=== PATIENT | male | born 1955 | race Caucasian/White ===

== ENCOUNTER 2017-10-20 08:36 | Outpatient (CLI) | payer BC, SELFPAY ==
[2017-10-20 12:18] LABS: Cholesterol 120 mg/dL (50-200); HDL Cholesterol 42 mg/dL (40-60); LDL CHOLESTEROL 65 mg/dL (<100); Triglyceride 148 mg/dL (30-150)
[2017-10-23 09:53] LABS: PSA, Screening 1.1 ng/ml (0-4.5)
== END 2017-10-20 08:56 ==
LOC: LBO 08:37 → LOS 10:40
PROVIDERS: PCP Emergency Medicine; Visit Provider Emergency Medicine
DX: E78.5 Hyperlipidemia, unspecified (principal); Z12.5 Encounter for screening for malignant neoplasm of prostate; N40.0 Benign prostatic hyperplasia without lower urinary tract symptoms
CPT/HCPCS: 36415; 80061; 83721; 84153

== ENCOUNTER 2018-10-19 03:49 | Outpatient (CLI) | payer BC, SELFPAY ==
[2018-10-19 11:16] LABS: Calculated LDL 68 mg/dL; Cholesterol 148 mg/dL (50-200); HDL Cholesterol 42 mg/dL (40-60); Triglyceride 193 mg/dL (30-150)
[2018-10-19 11:27] LABS: Hemoglobin A1C 6.3 % (4.5-6.2)
== END 2018-10-19 04:09 ==
PROVIDERS: PCP Emergency Medicine; Visit Provider Emergency Medicine
DX: E11.9 Type 2 diabetes mellitus without complications (principal); Z00.00 Encounter for general adult medical examination without abnormal findings; Z13.220 Encounter for screening for lipoid disorders
CPT/HCPCS: 36415; 80061; 83036

== ENCOUNTER 2020-01-13 03:38 | Outpatient (CLI) | payer MEDICARE, SELFPAY ==
[2020-01-13 10:21] LABS: Hemoglobin A1C 6.1 % (<5.7)
== END 2020-01-13 03:58 ==
PROVIDERS: Nurse Practitioner Family; PCP Emergency Medicine; Visit Provider Emergency Medicine
DX: E11.9 Type 2 diabetes mellitus without complications (principal)
CPT/HCPCS: 36415; 83036

== ENCOUNTER 2020-03-24 02:40 | Outpatient (CLI) | payer MEDICARE, SELFPAY ==
[2020-03-24 16:02] LABS: Hemoglobin A1C 5.9 % (<5.7)
[2020-03-24 16:04] LABS: Anion Gap 11.3 mmol/L (3-11); BUN 16 mg/dL (7-18); CO2 24.7 mmol/L (21.0-32.0); CREATININE 1.1 mg/dL (0.70-1.30); Calcium 8.9 mg/dL (8.5-10.1); Calculated LDL 40 mg/dL (<100); Chloride 104 mmol/L (98-107); Cholesterol 143 mg/dL (<200); Glucose 110 mg/dL (74-106); HDL Cholesterol 45 mg/dL (40-60); Potassium 4.2 mmol/L (3.5-5.1); Sodium 140 mmol/L (136-145); Triglyceride 292 mg/dL (<150)
== END 2020-03-24 02:41 | disposition home or self-care (01) ==
LOC: LBO 02:41
PROVIDERS: PCP Emergency Medicine; Visit Provider Emergency Medicine
DX: E78.5 Hyperlipidemia, unspecified (principal); I10 Essential (primary) hypertension; I21.3 ST elevation (STEMI) myocardial infarction of unspecified site; E11.9 Type 2 diabetes mellitus without complications
CPT/HCPCS: 36415; 80048; 80061; 83036

== ENCOUNTER 2020-10-29 13:08 | Outpatient (REF) | payer MEDICARE, SELFPAY ==
[2020-10-29 19:16] LABS: Hemoglobin A1C 5.9 % (<5.7)
[2020-10-29 19:21] LABS: Anion Gap 8.8 mmol/L (3-11); BUN 16 mg/dL (7-18); CO2 26.2 mmol/L (21.0-32.0); CREATININE 1.1 mg/dL (0.70-1.30); Calcium 9.1 mg/dL (8.5-10.1); Chloride 106 mmol/L (98-107); Glucose 104 mg/dL (74-106); Potassium 4.9 mmol/L (3.5-5.1); Sodium 141 mmol/L (136-145)
== END 2020-10-29 13:09 | disposition home or self-care (01) ==
LOC: LBN 13:08
PROVIDERS: PCP Emergency Medicine; Visit Provider Emergency Medicine
DX: E11.9 Type 2 diabetes mellitus without complications (principal); I10 Essential (primary) hypertension
CPT/HCPCS: 80048; 83036

== ENCOUNTER 2021-05-27 02:27 | Outpatient (CLI) | payer MEDICARE, SELFPAY ==
[2021-05-27 11:14] LABS: Hemoglobin A1C 5.9 % (<5.7)
[2021-05-27 12:15] LABS: Calculated LDL 61 mg/dL (<100); Cholesterol 129 mg/dL (<200); HDL Cholesterol 44 mg/dL (40-60); Triglyceride 123 mg/dL (<150)
== END 2021-05-27 02:28 | disposition home or self-care (01) ==
LOC: LBO 02:27
PROVIDERS: Emergency Medicine; PCP Family Medicine; Visit Provider Family Medicine
DX: I10 Essential (primary) hypertension (principal); E78.5 Hyperlipidemia, unspecified; E11.9 Type 2 diabetes mellitus without complications
CPT/HCPCS: 36415; 80061; 83036

== ENCOUNTER 2021-11-02 13:29 | Outpatient (CLI) | payer MEDICARE, SELFPAY ==
[2021-11-02 10:10] LABS: Estimated GFR 82.49 (mL/min/1.73m2); Potassium 4.2 mmol/L (3.5-5.1)
--- OUTSIDE RECORDS SUMMARY | 2021-11-02 13:34 | XMS_ITS | Encounter Summary ---
:1955 Author Organization [facility] Address [address] [place] [address] Care Team Providers Name Role Phone JairoLouie davies Primary Care Provider Reason for Visit Reason Onset Date Comments Appointment Related 06/18/2014 Encounter Details Date Type Department Care Team Description 06/18/[address] [facility] DANAY - Ender Sousa MD Appointment Related [employer] [address] [place] [address] [place], [place] [phone] (Wo rk) Social History Tobacco Use Types Packs/Day Years Used Date Never Smoker Alcohol Use Standard Drinks/Week Comments Yes 0 (1 standard drink = 0.6 oz pure alcoho l) 1 Alcohol Habits Answer Date Recorded How often do you have a drink containing alcohol? Not asked How many drinks containing alcohol do you have on a typical Not asked day when you are drinking? How often do you have six or more drinks on one occasion? No t asked Comment: 1 06/11/2014 Sex Assigned at Date Recorded Not on file documented as of this encounter Miscellaneous Notes Telephone Encounter - Jenna Esquivel RN - 06/18/[address] Sousa recommends having CT scan and following up here after. Pt will have CT a t9 am Monday. elephone Encounter - Saniya Fraire - 06/18/2014 0952 EDT Patient called and is questioning whether having the ct scan is really necessary. Dr. Sousa told him during the visit it didn't look like anything to serious so he not so sure he wants to pursue this. Please advise. [phone] documented in this encounter Plan of Treatment Not on filedocumented as of this encounter Visit Diagnoses Not on filedocumented in this encounter Care Teams Machine Adjuster Relationship Specialty Start Date End Date Louie Gill, PCP - General 06/13/[address] [place], [place] [address] [address] documented as of this encounter
--- OUTSIDE RECORDS SUMMARY | 2021-11-02 13:34 | XMS_ITS | Encounter Summary ---
:1955 Author Organization [facility] Address [address] [place] [address] Care Team Providers Name Role Phone Jairo, Louie Aguila Primary Care Provider Encounter Details Date Type Department Care Team Description 08/21/2019 Lab Requisition [facility] Outr Resulting Lab, Pathology & Laboratory Provider [facility] [address] [place], [place] [id number] Social History Tobacco Use Types Packs/Day Years [...] on file documented as of this encounter Plan of Treatment Not on filedocumented as of this encounter Procedures Procedure Name Priority Date/Time Associated Comments Diagnosis PSA TOTAL, Routine 08/20/2019 15:40 Results for this DIAGNOSTIC EDT procedure are i n the results section. documented in this encounter Results PSA TOTAL, DIAGNOSTIC (08/20/2019 15:40 EDT) Pathologist Sig nature PSA 1.2 0.0 - 4.5 ng/mL [facility] Specimen Blood - Venous blood (substance) Narrative [facility] - 08/22/2019 8:49 EDT NOTE: Serum PSA concentration should not be in terpreted as absolute evidence for the presence or absence of malignant disease. Assayed on Siemens ADVIA Centaur XPT usi ng chemiluminescent technology.??Values obtained by using different assay methods cannot be used interchangeably. Performing Organization Address City/State/ZIP Code Phon e Number [facility] [address] [place] [address] SERVICES documented in this encounter Visit Diagnoses Not on filedocumented in this encounter Care Teams Compliance Aide Relationship Specialty Start Date End Date Louie Gill, PCP - General 06/13/11 [address] [place] [address] documented as of this encounter
--- OUTSIDE RECORDS SUMMARY | 2021-11-02 13:34 | XMS_ITS | Encounter Summary ---
:1955 Author Organization [facility] Address [address] [place] [address] Care Team Providers Name Role Phone JairoLouie anderson DO Primary Care Provider Reason for Visit Reason Comments Diagnostic Imaging Report Encounter Details Date Type Department Care Team Description 07/08/2014 Office Visit [facility] ENT Unknown, Provider, Maxillary sinus mass (Primary Dx); - Terry Tolliver MD [address] [place] [address] [address] [place] [address] Oral fistula [address] [place] [address] Social History Tobacco Use Types Packs/Day Years [...] on file documented as of this encounter Progress Notes Terry Sousa MD - 07/08/[address] scan of the sinuses. SUBJECTIVE: The patient is doing well, no new problems. OBJECTIVE: CT scans were read and reviewed with the patient, and this shows an oral maxillary fistula, which is encased by mucus lining thickening and partial rim calcification. There is also mild mucoperiosteal thickening of the left maxillary and right sphenoid sinus. IMPRESSION: Dental abscess that caused the oral antral fistula and calcification in the right maxillary sinus, followed by dental extraction, now leaves a pocket between the oral cavity and the right maxillary sinus. This is a potential for infection. RECOMMENDATION: Consider repair of the oral antral fistula, either from the top down or bottom up orcombination of the two; however, since the patient is not having any symptoms, he may consider waiting before proceeding with surgical repair. cc: Dillon Gill. cc: Dr Lin in oral surgery. documented in this encounter Plan of Treatment Not on filedocumented as of this encounter Visit Diagnoses Diagnosis Maxillary sinus mass - Primary Swelling, mass, or lump in head and neck Oral fistula Cellulitis and abscess of oral soft tiss ues documented in this encounter Care Teams Division Order Technician Relationship Specialty Start Date End Date Louie Gill DO PCP - General 06/13/11 [address] [place] [address] documented as of this encounter
--- OUTSIDE RECORDS SUMMARY | 2021-11-02 13:34 | XMS_ITS | Encounter Summary ---
:1955 Author Organization [facility] Address [address] [place] [address] Care Team Providers Name Role Phone Louie Gill DO Primary Care Provider Encounter Details Date Type Department Care Team Description 12/26/2017 Results Only [facility]- Giorgio Hare MD [phone] [place] [phone] Social History Tobacco Use Types Packs/Day Years [...] encounter Procedures Procedure Name Priority Date/Time Associated Diagnosis Comme nts SURGICAL PATHOLOGY Routine 12/26/2017 16:47 Resul ts for this EST procedure are i n the results section. documented in this encounter Results SURGICAL PATHOLOGY (12/26/2017 16:47 EST) Pathology Report: SURGICAL PATHOLOGY REPORT [facility] Reports generated via electronic interface contain tal ginal data; LABORATORY however they are lacking the format of the original re port. SERVICES Caution should be taken when reading/interpreting unfo rmatted reports. Name: ? JESSIKA CHRISTIE ? Accession #: ? [id number] ? : ? 1955 (Age: [age]) ??M ? Collect Date: ? 12/26/2017 ? Location: ? [facility] ? Receive Date: ? 12/27/19 18 ? Provider: GIORGIO CAO MD Copy to: ? Final Pathologic Diagnosis: A. ??COLON, SIGMOID POLYP, POLYPECTOMY: - Fragment of unremarkable colonic mucosa. - No polypoid lesion noted (multiple levels examined). B. ??RECTUM, POLYP, POLYPECTOMY: - Hyperplastic polyp. ?? Document reviewed and electronically signed by: GOSIA MARISCAL MD Report ??Date: 12/27/2017 15:45 By the signature above, the attending physician certif ies that he/she has personally conducted a gross and/or microscopic examin ation of the described specimens and rendered or confirmed the above diagnosi s. Specimen(s) Received: A. ??Sigmoid polyp B. ??Rectal polyp Clinical History: Clinical diagnosis codes: Z12.11, Z86.010, Z80.0 Gross Description: A. ?Received in formalin labelled with proper p atient identification (initials B, R) and sigmoid polyp is a single pink-marshall tissue fragment (0.3 x 0.2 x 0.2 cm). Submitted intact in A1. B. ?Received in formalin labelled with proper p atient identification (initials B, R) and rectal polyp is a single pink-marshall tissue fragment (0.2 x 0.2 x 0.2 cm). Submitted intact in B1. RIYA Us (ASCP) 12/26/2017 5:06 PM End of Report Specimen Performing Organization Address City/State/ZIP Code Phon e Number [facility] [address] [place] [address] SERVICES documented in this encounter Visit Diagnoses Not on filedocumented in this encounter Care Teams Tunneller Relationship Specialty Start Date End Date Louie Gill DO PCP - General 06/13/11 [address] [place] [address] documented as of this encounter
--- OUTSIDE RECORDS SUMMARY | 2021-11-02 13:34 | XMS_ITS | Encounter Summary ---
:1955 Author Organization [facility] Address [address] [place] [address] Care Team Providers Name Role Phone Jairo, Louie Sheehan DO Primary Care Provider Reason for Referral Cardiology (Routine) - Closed Specialty Diagnoses / Procedures Referred By Contact Refer red To Contact Diagnoses Pre-op testing Terry Sousa MD Procedures EKG 12-LEAD [address] [facility] [address] [place] [address] Referral ID Status Reason Start Date Expiration Date Visits Requ ested Visits Authorized [id number] Closed 08/19/2015 1 1 Reason for Visit Reason Onset Date Comments Pre-visit Orders 08/11/2015 PRE OP ORDERS CHEST X RAY AND ekg Encounter Details Date Type Department Care Team Description 08/11/2015 Orders Only [facility] ENT Terry Sousa, Pre-op testing (Primary Dx); - Arjun LEONE Maxillary sinus mass; [address] [facility] [place] [address] [address] [place] [address] Social History Tobacco Use Types Packs/Day Years [...] as of this encounter Plan of Treatment Scheduled Orders Name Type Priority Associated Diagnoses Order S chedule EKG 12-LEAD ECG Routine Pre-op testing Ordered: 07/2015 documented as of this encounter Visit Diagnoses Diagnosis Pre-op testing - Primary Preoperative examination, unspecified Maxillary sinus mass Swelling, mass, or lump in head and neck Oral fistula Cellulitis and abscess of oral soft tiss ues documented in this encounter Care Teams Legal Activity Adjudicator Relationship Specialty Start Date End Date Louie Gill, PCP - General 06/13/11 [address] [place] [address] documented as of this encounter
--- OUTSIDE RECORDS SUMMARY | 2021-11-02 13:34 | XMS_ITS | Encounter Summary ---
:[address] [facility] Address [address] [place] [address] Care Team Providers Name Role Phone Louie Gill Aguila DO Primary Care Provider Encounter Details Date Type Department Care Team Description 08/05/2011 Results Only [facility] Katlin Gill, DO Laboratory Services - [address] [place] [address] 0 [facility] [place] [address] [phone] Social History Tobacco Use Types Packs/Day Years Used Date Never Assessed Sex Assigned at Date Recorded Not on file documented as of this encounter Plan of Treatment Not on filedocumented as of this encounter Procedures Procedure Name Priority Date/Time Associated Diagnosis Comme [facility] SURGICAL PATHOLOGY Routine 08/05/2011 0:00 EDT Re sults for this procedure are i n the results section. documented in this encounter Results SURGICAL PATHOLOGY (08/05/2011 0:00 EDT) Pathology Report: SURGICAL PATHOLOGY REPORT [facility] Reports generated via electronic interface contain tal ginal data; LAB however they are lacking the format of the original re port. Caution should be taken when reading/interpreting unfo rmatted reports. Name: ? JESSIKA CHRISTIE ? Accession #: ? [id number] ? : ? 1955 (Age: 56) ??M ? Collect Date: ? 08/05/2011 ? Location: ? [facility] ? Receive Date: ? 012 ? Provider: LOUIE GILL DO Copy to: ? Final Pathologic Diagnosis: ? Skin of knee, right, excisional biopsy: 1. ?Dermatofibroma. ? - Dermatofibroma extends to deep margin. ?? Microscopic Description: ? There is irregular epidermal hyperplasia with basal hyperpigmentation. Within the dermis, there is a spindle cell proliferati on accompanied by histiocytes. ??The spindle c ells have plump nuclei that vary to a mild degree in size and shape. ??The prolif eration is associated with thick bundles of collagen (collagen trapping) and areas of sclerosis. ??(Dr. Leatha iraheta)/mignon Document reviewed and electronically signed by: NOREEN RUIZ MD Report ??Date: 08/08/2011 15:31 By the signature above, the attending physician certif ies that he/she has personally conducted a gross and/or microscopic examin ation of the described specimens and rendered or confirmed the above diagnosi s. Specimen(s) Received: ? Excisional biopsy R knee Clinical History: ? Atypical nodule Gross Description: ? Received in formalin labelled Jessika Christie and Rt knee is an unoriented elliptical excisi on of marshall-white, focally hairbearing skin measuring 1.3 x 0.9 cm and is excised to a depth of 0.2 cm. ??There is a central 0.4 x 0.4 by less than 0.1 cm irregula r carmona-white, smooth, firm papule. ??The margins are inked. ??The specimen is serially sectio landon and entirely submitted as (A1) and (A2) central sections and (A3) tips, reverse en face. ??(Holly Buckner)/m End of Report Specimen Performing Organization Address City/State/ZIP Code Phon e Number [facility] [address] [place] [address] SERVICES [facility] [address] [place] [address] documented in this encounter Visit Diagnoses Not on filedocumented in this encounter Care Teams Confidential Secretary Relationship Specialty Start Date End Date Louie Gill, PCP - General 06/13/11 [address] [place] [address] documented as of this encounter
--- OUTSIDE RECORDS SUMMARY | 2021-11-02 13:34 | XMS_ITS | Encounter Summary ---
:1955 Author Organization [facility] Address [address] [place] [address] Care Team Providers Name Role Phone Louie Gill DO Primary Care Provider Encounter Details Date Type Department Care Team Description 12/26/2017 Hospital Encounter [facility]- Maria E Unknown, Provider, [facility] [address] [facility] [phone] [place] [address] (Work) [phone] Social History Tobacco Use Types Packs/Day Years [...] on file documented as of this encounter Medications at Time of Discharge Medication Sig Dispensed Refills Start Date End Date aspirin 325 mg tablet Take 325 mg by 0 mouth daily ERGOCALCIFEROL, VITAMIN D2, Take by mouth 0 (VITAMIN D ORAL) hydrochlorothiazide Take 25 mg by 0 (HYDRODIURIL) 25 mg tablet mouth daily levOFLOXacin (LEVAQUIN) 500 mg Take 1 Tab by 14 Tab 1 tablet mouth daily. lisinopril (PRINIVIL, ZESTRIL) Take 10 mg by 0 10 mg tablet mouth daily Multivitamins with Minerals Take 1 Tab by 0 tablet mouth daily pravastatin (PRAVACHOL) 20 mg Take 40 mg by 0 tablet mouth daily documented as of this encounter Discharge Disposition Disposition Code Departure Means Destination Home or Self Senior Living documented in this encounter Plan of Treatment Not on filedocumented as of this encounter Visit Diagnoses Not on filedocumented in this encounter Care Teams Business Office Director Relationship Specialty Start Date End Date Louie Gill DO PCP - General 06/13/[address] [place] [address] documented as of this encounter
--- OUTSIDE RECORDS SUMMARY | 2021-11-02 13:34 | XMS_ITS | Clinical Summary ---
:1955 Author Organization [facility] [place] [address] Care Team Providers Name Role Phone JairoLouie Primary Care Provider Allergies Active Allergy Reactions Severity Noted Date Comments Latex Rash 01/26/2012 Latex, Natural Rubber 12/15/2015 Penicillins Shortness Of Breath, High 09/08/2015 Per pat magnolia, can take Rash z-pack. Medications Medication Sig Dispensed Refills Start Date End Date Status multivitamin (THERAGRAN) Take 1 tablet by 0 Active tablet mouth daily. aspirin 81 mg Tablet, Take 81 mg by 0 Active Delayed Release (E.C.) mouth daily. carvedilol (COREG) 6.25 Take 6.25 mg by 0 Active mg Tablet mouth 2 times daily (with meals). CALCIUM CARBONATE/VITAMIN Take 1 tablet by 0 Active D3 (VITAMIN D-3 ORAL) mouth daily. BETA-CAROTENE,A,-VITS Take 1 capsule 0 Active C,E/MINS (EYE HEALTH by mouth daily. ORAL) [employer]Promise lisinopril Take 10 mg by 0 04/21/2015 Acti ve (PRINIVIL;ZESTRIL) 10 mg mouth daily. Tablet atorvastatin (LIPITOR) 80 Take 1 tablet by 90 tablet 3 020 Active mg Tablet mouth daily. nitroGLYcerin (NITROSTAT) Place 1 tablet 10 tablet 0 0 Active 0.4 mg Tablet, Sublingual under the tongue every 5 minutes as needed for Chest pain. hydroCHLOROthiazide Daily 0 12/07/2012 Active (Hydrodiuril) 25 mg Tablet metFORMIN (Glucophage) Take 500 mg by 0 03/06/2020 Active 500 mg Tablet mouth 2 times daily. 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 Alcohol Use Standard Drinks/Week Comments Yes 0 (1 standard drink = 0.6 oz pure alcoho l) occasionally Alcohol Habits Answer Date Recorded How often do you have a drink containing alcohol? Not asked How many drinks containing alcohol do you have on a Not aske d typical day when you are drinking? How often do you have six or more drinks on one occasion? No t asked Comment: occasionally 09/08/2015 Sex Assigned at Date Recorded Not on file Last Filed Vital Signs Vital Sign Reading Time Taken Comments Blood Pressure 136/71 03/24/2020 8:48 AM EST Pulse 63 03/24/2020 8:48 AM EST Temperature 36.3 ??C (97.3 ??F) 01/26/2012 3:19 PM EST Respiratory Rate 16 01/26/2012 5:06 PM EST Oxygen Saturation 98% 03/24/2020 8:48 AM EST Inhaled Oxygen Concentration - - Weight 116.6 kg (257 lb) 03/24/2020 8:48 AM EST Height 182.9 cm (6') 03/24/2020 8:48 AM EST Body Mass Index 34.86 03/24/2020 8:48 AM EST Plan of Treatment Upcoming Encounters Date Type Specialty Care Team Description 11/24/2021 Office Visit Cardiology Tyesha Guzman MD [facility] [place] [address] Sam Lord MD [facility] [address] Health Maintenance Due Date Last Done Comments Covid-19 Vaccine (#1) 05/14/1959 Hepatitis C Screening 1972 Tdap adult 1973 Tetanus vaccine 1973 Zoster vaccine (1 of 2) 2004 Advance Directive 2009 AAA Screen 05/14/2019 Pneumoccocal Vaccine: 65+ (1 - PCV) 05/14/2019 Diabetes Screening (HgbA1C or Glucose) 09/28/2019 7 Influenza (Flu) vaccine (1 of 1 - 10/14/2021 Influenza standard series) Colonoscopy 01/25/2022 01/26/2012, 01/26/2012 Insurance Payer Benefit Plan / Subscriber ID Effective Phone Address T ype Group Dates AETNA MEDICARE AETNA MEDICARE [id number] 2019-Prese [address] [address] [place] [address] MEDICARE MEDICARE PART A [id number] 2020-Prese [phone] [place] [address] Advance Directives Documents on File Type Date Recorded Patient Traffic Routing Engineer Explanati on Personal Traffic Routing Engineer 02/27/2018 3:15 PM Lucero Keith Care Teams Director Of Vital Statistics Relationship Specialty Start Date End Date Louie Gill DO PCP - General 01/16/[address] [place], [place] [address]
--- OUTSIDE RECORDS SUMMARY | 2021-11-02 13:34 | XMS_ITS | Encounter Summary ---
:1955 Author Organization [facility] [place] [address] Care Team Providers Name Role Phone Louie Gill DO Primary Care Provider Encounter Details Date Type Department Care Team Description 03/17/2020 Orders Only Cardiology at [facility] Natty Camilo Hypertension, [facility] MAIKEL Beyer essential , [place] [address] Social History Tobacco Use Types Packs/Day Years [...] as of this encounter Plan of Treatment Upcoming Encounters Date Type Specialty Care Team Description 11/24/2021 Office Visit Cardiology Tyesha Guzman MD [facility] [place] [address] Sam Lord MD [facility] [address] documented as of this encounter Results EKG 12 Lead (03/24/2020 9:04 AM EST) Component Value Ref Range Test Analysis Performed Pathologis t Method Time At Signature Ventricular rate 65 BPM MUSE SYSTEM Atrial Rate 65 BPM MUSE SYSTEM P-R Interval 188 ms MUSE SYSTEM QRS Duration 96 ms MUSE SYSTEM Q-T Interval 430 ms MUSE SYSTEM QTC Calculated 447 ms MUSE SYSTEM (Bezet) Calculated P [place] 53 degrees MUSE SYSTEM Calculated R [place] 21 degrees MUSE SYSTEM Calculated T [place] 20 degrees MUSE SYSTEM INTERPRETATION Normal sinus rhythm MUSE SYSTEM possible ??Inferior infarct (cited on or before 18-SEP-2015) Abnormal ECG When compared with ECG of 19-FEB-2019 08:59, No significant change was found I personally reviewed the tracing and agree with the vazquez interpretation Confirmed by fellow Navi Munoz ([id number]) on 03/24/2020 2 :54:37 PM Confirmed by Maggie Morales ([id number]) on 03/24/2020 3:10:46 PM Specimen Anatomical Collection Method Collection Time Receive d Time (Source) Location / / Volume Laterality 03/24/2020 9:04 AM 3:10 EST PM EST Wilbur Serna Robert MD ECG ORDERABLES Performing Organization Address City/State/ZIP Code Phon e Number MUSE SYSTEM documented in this encounter Visit Diagnoses Diagnosis Hypertension, essential, benign Essential hypertension, benign documented in this encounter Care Teams Sr Vice President Relationship Specialty Start Date End Date Louie Gill DO PCP - General 01/16/[address] [place] [address] documented as of this encounter
--- OUTSIDE RECORDS SUMMARY | 2021-11-02 13:34 | XMS_ITS | Encounter Summary ---
:1955 Author Organization [facility] Address [address] [place] [address] Care Team Providers Name Role Phone Jairo, Louie Sheehan DO Primary Care Provider Reason for Visit Reason Onset Date Comments Appointment Related 08/12/2015 Encounter Details Date Type Department Care Team Description 08/12/2015 Telephone [facility] DANAY - Ender Sousa MD Appointment Related [place] [address] [place] [address] [place] [phone] (Wo rk) Social History Tobacco Use [...] this encounter Miscellaneous Notes Telephone Encounter - Flora Urban RN - 08/18/2015 1412 EDT Pt called back to discuss below message from last week. Chu states that he originally saw an oralsurgeon who recommended he see Dr. Sousa due to poor resolution of a sinus infection. He states that he waited a long time to be seen. He notes that he felt his office visit was very brief/rushed with Dr. Sousa and he felt that his pain concerns could have been better addressed by Dr. Sousa and referred to someone else as appropriate. He said that it turns out all of his pain was due to angina and a heart attack. He was seen in [place] and determined that this was the cause of the pain. He is now on blood thinners and being treated by a energy specialist at [facility] he can't have surgery anyway for 90 days due to the blood thinners and does plan to see an ENT at [facility] as well. Chu does welcome a call from Dr. Sousa should he have any thoughts on treatment for his chronic sinus congestion, he states he is still really full of junk and sounds very congested.. However he plans to transfer care to [facility]. He states he is sure Dr. Sousa is a good MD however he felt he was super busy the day he was seen and therefore was unable to give him the time needed. Pt knows that I will forward his message on to Dr. Sousa when he returns tomorrow. elephone Encounter - Flora Urban RN - 08/13/2015 0903 EDT Left message to call back. elephone Encounter - Cortney Mckay - 08/12/2015 1044 EDT Pt returned my call to schedule a CT scan. Pt informed me that he is unable to proceed with the current plan of CT, preop and surgery due to having suffered a mild heart attack while in [place] on vacation last weekend. Pt also states that he will not be returning for treatment from Dr Sousa as he feels hissore throat and coughing were not addressed in a timely matter and the coughing was the cause his heart attack. This pt's appt and imaging have been cancelled. documented in this encounter Plan of Treatment Not on filedocumented as of this encounter Visit Diagnoses Not on filedocumented in this encounter Care Teams Steam Service Inspector Relationship Specialty Start Date End Date Louie Gill, PCP - General 06/13/11 [address] [facility] [place] [address] documented as of this encounter
--- OUTSIDE RECORDS SUMMARY | 2021-11-02 13:34 | XMS_ITS | Encounter Summary ---
:[address] [facility] Address [address] [place] [address] Care Team Providers Name Role Phone Louie Gill Primary Care Provider Reason for Referral Laboratory Services (Routine) - Closed Specialty Diagnoses / Procedures Referred By Contact Refer red To Contact Diagnoses Chronic sinusitis, unspecified Terry Sousa MD Procedures HEMAGRAM AND DIFFERENTIAL [address] [facility] [address] [place] [address] Referral ID Status Reason Start Date Expiration Date Visits Requ ested Visits Authorized [id number] Closed 08/19/2015 1 1 Reason for Visit Reason Onset Date Comments Labs Only 08/11/2015 Encounter Details Date Type Department Care Team Description 08/11/2015 Orders Only [facility] ENT Terry Sousa, Chronic sinusitis, - Arjun LEONE unspecified (Primary [address] [place] [address] [address] [place] [address] Social History Tobacco Use Types [...] Type Priority Associated Diagnoses Order S chedule HEMAGRAM AND DIFFERENTIAL Lab Routine Chronic sinusit is, Ordered: 08/19/2015 unspecified documented as of this encounter Visit Diagnoses Diagnosis Chronic sinusitis, unspecified - Primary documented in this encounter Care Teams Boots And Shoes Supervisor Relationship Specialty Start Date End Date Louie Gill, PCP - General 06/13/11 [facility] [place] [address] documented as of this encounter
--- OUTSIDE RECORDS SUMMARY | 2021-11-02 13:34 | XMS_ITS | Encounter Summary ---
:1955 Author Organization [facility] Address [address] [place] [address] Care Team Providers Name Role Phone JairoLouie anderson DO Primary Care Provider Reason for Referral Radiology Services (Routine) - Closed Specialty Diagnoses / Procedures Referred By Contact Refer red To Contact Diagnoses Maxillary sinus mass Oral fistula Terry Sousa MD Procedures CT SINUSES [address] [phone] Referral ID Status Reason Start Date Expiration Date Visits Requ ested Visits Authorized [id number] Closed 08/06/2015 1 1 Reason for Visit Reason Comments Follow-up chronic sinus drainage Encounter Details Date Type Department Care Team Description 08/06/2015 Office Visit [facility] ENT Unknown, Provider, Maxillary sinus mass (Primary Dx); - Terry Tolliver MD [address] [phone] Oral fistula [address] [place] [address] Social History Tobacco Use Types Packs/Day [...] on file documented as of this encounter Ordered Prescriptions Prescription Sig Dispensed Refills Start Date End Date levOFLOXacin (LEVAQUIN) 500 Take 1 Tab by mouth 14 Tab 1 08/06/2015 mg tablet daily. documented in this encounter Progress Notes Terry Sousa MD - 08/06/2015 1605 EDT Followup right oroantral fistula and chronic sinusitis. SUBJECTIVE: A 60-year-old male who underwent extraction of the right first molar in April 2014 complicated by an oroantral fistula. This was confirmed with a CT scan and on February 2015, he underwent amultilayer closure of the fistula with good healing; however, he returned with a recurrent sinus disease and drainage and a probe showed a persistent fistula. His past medical history significant for hypertension and hypercholesterolemia. Family history significant for heart disease and cancer. SOCIAL HISTORY: The patient is a nonsmoker. He has drug allergies to LATEX and PENICILLIN. Current medications include aspirin, vitamin D, hydrochlorothiazide, lisinopril, multivitamins and Pravachol. PHYSICAL EXAM: General: Well-developed, well-nourished, alert, oriented, cooperative adult male in no acute distress. Normal voice. The face is normal without lesions. Facial strength is symmetric. Eyeexam is normal. Ears: External ears are normal, canals are clear, tympanic membranes are normal. Nose: Nasal dorsum is midline, the airway is patent. Oral cavity and posterior pharynx is clear. Neck: No pathologic lymphadenopathy. Trachea is midline. Chest is clear to auscultation. Heart: Regular rateand rhythm. PROCEDURE: Fiberoptic nasal endoscopy was performed and this reveals edema in the right middle meatus area at the maxillary sinus ostium. IMPRESSION: Chronic sinusitis, persistent oroantral fistula. PLAN: Will treat with a prolonged course of antibiotic therapy, repeat CT scan of the sinuses and schedule patient for functional endoscopic sinus surgery with opening of the right maxillary sinus ostia. Hopefully, this will clear the sinus disease and allow the fistula to heal spontaneously. If not, consider oroantral fistula repair from above and below. The patient understands and agrees with the current plan. cc: Dr Jairo Lin DDS documented in this encounter Plan of Treatment Scheduled Orders Name Type Priority Associated Diagnoses Order S chedule CT SINUSES Imaging Routine Maxillary sinus mass Ordered: 08/06/2015 Oral fistula documented as of this encounter Visit Diagnoses Diagnosis Maxillary sinus mass - Primary Swelling, mass, or lump in head and neck Oral fistula Cellulitis and abscess of oral soft tiss ues documented in this encounter Care Teams Fern Picker Relationship Specialty Start Date End Date Louie Gill, PCP - General 06/13/11 [facility] [place] [address] documented as of this encounter
--- OUTSIDE RECORDS SUMMARY | 2021-11-02 13:34 | XMS_ITS | Encounter Summary ---
:1955 Author Organization [facility] Address [address] [place] [address] Care Team Providers Name Role Phone Louie Gill Primary Care Provider Encounter Details Date Type Department Care Team Description 06/10/2011 Results Only [facility] Giles Saavedra DPM Laboratory Services - [address] [address] [phone] Social History Tobacco Use Types Packs/Day Years Used Date Never Assessed Sex Assigned at Date Recorded Not on file documented as of this encounter Plan of Treatment Not on filedocumented as of this encounter Procedures Procedure Name Priority Date/Time Associated Diagnosis Comme [facility] SURGICAL PATHOLOGY Routine 06/10/2011 0:00 EDT Re sults for this procedure are i n the results section. documented in this encounter Results SURGICAL PATHOLOGY (06/10/2011 0:00 EDT) Pathology Report: SURGICAL PATHOLOGY REPORT KAELA SHANNON Reports generated via electronic interface contain tal ginal data; LAB however they are lacking the format of the original re port. Caution should be taken when reading/interpreting unfo rmatted reports. Name: ? JESSIKA CHRISTIE ? Accession #: ? [id number] ? : ? 1955 (Age: 56) ??M ? Collect Date: ? 06/10/2011 ? Location: ? [facility] ? Receive Date: ? 012 ? Provider: ELISHA SAAVEDRA DPM Copy to: LOUIE Aguila GILL DO ? Final Pathologic Diagnosis: ? Soft tissue of foot, left plantar, excision: - Plantar fibromatosis. ?? Document reviewed and electronically signed by: HERNANDEZ KEMP MD Report ??Date: 06/14/2011 14:26 By the signature above, the attending physician certif ies that he/she has personally conducted a gross and/or microscopic examin ation of the described specimens and rendered or confirmed the above diagnosi s. Specimen(s) Received: ? Plantar mass left foot Clinical History: ? Plantar mass left foot Gross Description: ? Received in formalin labelled Luisa Christie onkb and plantar mass left foot are two firm, irregula r, and unoriented pieces of marshall-white tissue with a small amount of attached yel low adipose tissue which measure 1.4 x 1.1 x 0.7 cm and 3.0 x 1.5 x 1.1 cm. ??Th e larger piece is inked black and the smaller piece is inked blue. ??The cut surfaces are marshall-white to yellow-white, fibrous, and faintly nodular with no areas of hemorrhage. ??R epresentative sections of the larger piece are submitted as (A1) and (A2) and the smaller piece is entirely submitted as (A3). ??(Natasha Carlson)/mignon End of Report Specimen Performing Organization Address City/State/ZIP Code Phon e Number [facility] [address] [place] [address] [facility] [address] [place] [address] documented in this encounter Visit Diagnoses Not on filedocumented in this encounter Care Teams Group Program Manager Relationship Specialty Start Date End Date Louie Gill, DO PCP - General 06/13/11 [address] [facility] [place] [address] documented as of this encounter
--- OUTSIDE RECORDS SUMMARY | 2021-11-02 13:34 | XMS_ITS | Encounter Summary ---
:1955 Author Organization [facility] Address [address] [place] [address] Care Team Providers Name Role Phone Louie Gill DO Primary Care Provider Encounter Details Date Type Department Care Team Description 07/01/2014 Hospital Encounter [facility] - [facility], [facility] [phone] [place] [address] (Work) [place] [address] Social History Tobacco Use Types Packs/Day Years [...] 0 (HYDRODIURIL) 25 mg tablet mouth daily lisinopril (PRINIVIL, ZESTRIL) Take 10 mg by 0 10 mg tablet mouth daily Multivitamins with Minerals Take 1 Tab by 0 tablet mouth daily pravastatin (PRAVACHOL) 20 mg Take 40 mg by 0 tablet mouth daily documented as of this encounter Discharge Disposition Disposition Code Departure Means Destination Home or Self [facility]sp documented in this encounter Plan of Treatment Not on filedocumented as of this encounter Visit Diagnoses Not on filedocumented in this encounter Care Teams Mold Forms Builder Relationship Specialty Start Date End Date Louie Gill, PCP - General 06/13/[address] [place] [address] [place] [address] documented as of this encounter
--- OUTSIDE RECORDS SUMMARY | 2021-11-02 13:34 | XMS_ITS | Encounter Summary ---
:1955 Author Organization [facility] Address [address] [place] [address] Care Team Providers Name Role Phone JairoLouie davies Primary Care Provider Reason for Referral Radiology Services (Routine) - Closed Specialty Diagnoses / Procedures Referred By Contact Refer red To Contact Diagnoses Maxillary sinus mass Terry Sousa MD Procedures CT SINUSES [address] [phone] Referral ID Status Reason Start Date Expiration Date Visits Requ ested Visits Authorized [id number] Closed 06/11/2014 1 1 Reason for Visit Reason Comments Sinus Problems had tooth pulled a month ago but on xray noticed something on rt side. congested on rt side symptom s mild but constant since tooth pulled. question growth on bone. Encounter Details Date Type Department Care Team Description 06/11/2014 Office Visit [facility] ENT Unknown, Provider, Maxillary sinus mass - [place] Terry Sousa MD 130 [facility] [address] [address] (Primary Dx) [address] [place] [address] Social History Tobacco Use Types [...] on file documented as of this encounter Last Filed Vital Signs Vital Sign Reading Time Taken Comments Blood Pressure 129/75 06/11/2014 1116 EDT Pulse 66 06/11/2014 1116 EDT Temperature - - Respiratory Rate - - Oxygen Saturation - - Inhaled Oxygen Concentration - - Weight 113.4 kg (250 lb) 06/11/2014 1116 EDT Height 182.9 cm (6') 06/11/2014 1116 EDT Body Mass Index 33.91 06/11/2014 1116 EDT documented in this encounter Progress Notes Terry Sousa MD - 06/11/2014 1136 EDT This is a consult from Louie Gill and Shahzad Lin for evaluation of a sinus mass. HISTORY OF PRESENT ILLNESS: This is a 59-year-old male with a history of a right 1st molar dental abscess. A Panorex done in 2010 showed a large opacified mass in the right maxillary sinus, located posteriorly. He underwent a dental extraction 05/01/2014. The abscess was drained but resulted in an oral antral fistula. The fistula was probed and was noted to be blind ended. The patient noticed that his voice was more nasal since the extraction. His symptoms are otherwise of mild severity, constant, no known modifying factors or other associated signs or symptoms. Past Medical History: Significant for hypertension. Previous surgeries include: Nasal surgery for previous nasal fractures. FAMILY HISTORY: Significant for heart disease and cancer. Social History: The patient is a nonsmoker. He has drug allergies to LATEX and PENICILLIN. CURRENT MEDICATIONS: Vitamin D, multivitamins, aspirin, hydrochlorothiazide, lisinopril and Pravachol. Review of systems: Negative for general, respiratory, neurologic, endocrine, eyes, heart, psychiatric, hematology, ear, nose and throat, gastrointestinal, skin and urinary systems. Positive musculoskeletal for joint pain. PHYSICAL EXAMINATION: General: Well-developed, well-nourished, alert, oriented and cooperative adultmale in no acute distress. Normal voice. Vital signs: Height 72 inches, weight 250. Blood pressure 120/75, pulse 66. No reportable pain. The face is normal without lesions. No tenderness. Salivary glands are normal. Facial strength is symmetric. Eye exam is normal. Ears: External ears are normal. Canals are clear. The tympanic membranes are normal. Hearing is intact. Nose: Nasal dorsum is midline, the airway is patent. There is external nasal deformity from previous nasal fractures. Oral cavity: Lips, tongue, full mouth and buccal mucosa within normal limits. The right maxillary oral antral fistulais noted, no drainage. Posterior pharynx is clear. Neck: No pathologic lymphadenopathy. Trachea is midline. Thyroid is normal. Chest is clear to auscultation. Heart: Regular rate and rhythm. Procedure: Fiberoptic endoscopy was performed with topical anesthesia. No evidence of nasal polyps or purulence. Both middle meati are clear. Nasopharynx is clear. The base of tongue, epiglottis, vallecula, piriform sinuses, false vocal cords and true vocal cords are within normal limits. 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 Plan: Will obtain a CT scan of the paranasal sinuses. Follow up after CT. cc: Louie Lin documented in this encounter Plan of Treatment Scheduled Orders Name Type Priority Associated Diagnoses Order S chedule CT SINUSES Imaging Routine Maxillary sinus mass Ordered : 06/11/2014 documented as of this encounter Visit Diagnoses Diagnosis Maxillary sinus mass - Primary Swelling, mass, or lump in head and neck documented in this encounter Historical Medications This list may reflect changes made after this encounter. Medication Sig Dispensed Refills Start Date End Date ERGOCALCIFEROL, VITAMIN D2, Take by mouth 0 (VITAMIN D ORAL) Multivitamins with Minerals Take 1 Tab by 0 tablet mouth daily aspirin 325 mg tablet Take 325 mg by 0 mouth daily hydrochlorothiazide Take 25 mg by 0 (HYDRODIURIL) 25 mg tablet mouth daily lisinopril (PRINIVIL, ZESTRIL) Take 10 mg by 0 10 mg tablet mouth daily pravastatin (PRAVACHOL) 20 mg Take 40 mg by 0 tablet mouth daily added in this encounter Care Teams Macerator Operator Relationship Specialty Start Date End Date Louie Gill DO PCP - General 06/13/[address] [place] [address] [place] [address] documented as of this encounter
--- OUTSIDE RECORDS SUMMARY | 2021-11-02 13:35 | XMS_ITS | Encounter Summary ---
:1955 Author Organization [facility] [place] [address] Care Team Providers Name Role Phone Louie Gill Primary Care Provider Encounter Details Date Type Department Care Team Description 02/16/2016 Telephone Cardiology at [facility] Rebecca Dias, [place] [address] Social History Tobacco Use Types Packs/Day Years [...] this encounter Miscellaneous Notes Telephone Encounter - Rebecca Dias, RN - 02/16/2016 5:26 PM EST ----- Message from Wilder Chris sent at 02/16/2016 11:33 AM EST ----- Regarding: call please- medication out Contact: Patient is out of his medication and was informed it is now $300, is there something else he can take. Please call. Thank you, wilder Spoke with patient, the medication in question is Brilinta. Will confirm with Dr. Catherwood if he needs to continue this, he had CT, cath with bare metal stent in September 2015. Per Dr. Blair ?Yes, he can stop the ticagrelor at this point but should remain on daily aspirin 81mg. Called Chu, he will make sure to take Aspirin. Was also asking about Atorvastatin. Advised he should stay on this, and can shop around if needed for a better prieto. documented in this encounter Plan of Treatment Upcoming Encounters Date Type Specialty Care Team Description 11/24/2021 Office Visit Cardiology Tyesha Guzman MD [facility] [place] [address] Sam Lord MD [facility] [place] [address] documented as of this encounter Visit Diagnoses Not on filedocumented in this encounter Care Teams Supervisor Tubing Relationship Specialty Start Date End Date Louie Gill DO PCP - General 01/16/[address] [place] [address] documented as of this encounter
--- OUTSIDE RECORDS SUMMARY | 2021-11-02 13:35 | XMS_ITS | Encounter Summary ---
:1955 Author Organization [facility] [place] [address] Care Team Providers Name Role Phone Jairo Louie HOROWITZ Primary Care Provider Encounter Details Date Type Department Care Team Description 12/15/2015 Office Visit Otolaryngology at [facility], Oroantral fistula [facility] [place] [address] [address] [facility] [phone] [place] [address] Social History Tobacco Use Types Packs/Day Years [...] Sign Reading Time Taken Comments Blood Pressure 146/85 12/15/2015 2:27 PM EDT Pulse 75 12/15/2015 2:27 PM EDT Temperature - - Respiratory Rate - - Oxygen Saturation 95% 12/15/2015 2:27 PM EDT Inhaled Oxygen Concentration - - Weight 118.8 kg (261 lb 12.8 oz) 12/15/2015 2:27 PM EDT Height - - Body Mass Index 35.51 12/08/2015 1:57 PM EDT documented in this encounter Progress Notes Mirian Rdz MD - 12/15/2015 2:30 PM EDT Date:12/15/2015 Chu Keith is presenting for his oroantral fistula - Tiny, persistent, after dental extraction in 2014. Has not had a rotational flap or sinus surgery approach yet. History present illness: He thinks the fistula is closed - no foul drainage or nasal issues PHYSICAL EXAM Vitals: Blood pressure 146/85, pulse 75, weight (!) 118.8 kg (261 lb 12.8 oz), SpO2 95 %. GENERAL: He looks well HEAD/FACE: Normocephalic, atraumatic ORAL CAVITY: Fistula site probed - no evidence of continuity with nasal cavity. Assessment: Oroantral fistula closed. Doing well. Plan: Follow up prn Copy of this note will be sent to referring physician. documented in this encounter Plan of Treatment Upcoming Encounters Date Type Specialty Care Team Description 11/24/2021 Office Visit Cardiology Tyesha Guzman MD [facility] [place] [address] Sam Lord MD [facility] [place] [address] documented as of this encounter Visit Diagnoses Diagnosis Oroantral fistula Chronic maxillary sinusitis documented in this encounter Care Teams Tape Maker Relationship Specialty Start Date End Date Louie Gill DO PCP - General 01/16/[address] [place] [address] documented as of this encounter
--- OUTSIDE RECORDS SUMMARY | 2021-11-02 13:35 | XMS_ITS | Encounter Summary ---
:1955 Author Organization [facility] Address [facility] [place] [address] Care Team Providers Name Role Phone Louie Gill DO Primary Care Provider Reason for Visit Reason Comments Skin Check Encounter Details Date Type Department Care Team Description 04/20/2012 Office Visit Dermatology Tyrone Honeycutt, Seborrheic keratosis [address] [facility] (Primary Dx) [address] [place] [address] DERMATOLOGY [address] [place] [address] [phone] (Wo rk) Social History Tobacco Use Types Packs/Day Years Used Date Never Smoker Smokeless Tobacco: Never Used Alcohol Use Standard Drinks/Week Comments Yes 1 (1 standard drink = 0.6 oz pure alcoho l) Sex Assigned at Date Recorded Not on file documented as of this encounter Progress Notes Tyrone Honeycutt MD - 04/20/2012 11:22 AM EST Problem: Right taoism lesion. Carroll is a 56-year-old gentleman who recently has noted discoloration of a lesion on the right taoism. He has said he used a cream in the past for this general area and was told that he had a basal cell. Physical examination today reveals an erythematous patch about 1.5 cm in diameter on the right taoism, and posteriorly it has some slight hyperkeratosis, which has a brownish-marshall color. It appears consistent with a developing seborrheic keratosis, although differential might also include superficial BCCA or SCCA. Assessment and Plan: Rule out superficial BCCA/SCCA, right taoism. a. After obtaining informed patient consent, the site was anesthetized and removed with shave biopsy. b. Light C and D times three performed. c. Triple antibiotic ointment and Band-Aid placed. Wound care instructions and supplies given. d. I will notify the patient of biopsy results within the week. e. Return to the clinic here p.r.n. for new lesions/concerns. Copy: Louie Gill D.O. documented in this encounter Procedure Notes Provider, Scanning - 05/29/2012 5:51 PM EDTAssociated Order(s): SCAN DOC: SURGICAL PATHOLOGY documented in this encounter Miscellaneous Notes Miscellaneous - Provider, Scanning - 05/04/2012 11:54 AM EDT documented in this encounter Plan of Treatment Upcoming Encounters Date Type Specialty Care Team Description 11/24/2021 Office Visit Cardiology [place] [address] Sam Lord MD [facility] [place] [address] documented as of this encounter Procedures Procedure Name Priority Date/Time Associated Diagnosis Comme nts SURGICAL PATHOLOGY 05/29/2012 5:51 PM Res ults for this SCAN EDT procedure are i n the results section. documented in this encounter Results SCAN DOC: SURGICAL PATHOLOGY (05/29/2012 5:51 PM EDT) Narrative 05/29/2012 5:51 PM EDT Procedure Note Provider, Scanning - 05/29/2012 5:51 PM EDT Scanning Provider MEDIA MGR SCAN EXT ORDR/RSLT documented in this encounter Visit Diagnoses Diagnosis Seborrheic keratosis - Primary Other seborrheic keratosis documented in this encounter Care Teams Chin Strap Sewer Relationship Specialty Start Date End Date Louie Gill DO PCP - General 01/16/[address] [place] [address] [address] [facility] [address] [place] [address] documented as of this encounter
--- OUTSIDE RECORDS SUMMARY | 2021-11-02 13:35 | XMS_ITS | Encounter Summary ---
:1955 Author Organization [facility] [place] [address] Care Team Providers Name Role Phone Louie Gill DO Primary Care Provider Encounter Details Date Type Department Care Team Description 01/26/2012 Hospital Encounter Gastroenterology at [facility] Rachna Tracy, [facility] [place] [address] [facility] [phone] CENTER GASTROENTEROLOGY DEPT. [place], [place] [address] Social History Tobacco Use Types Packs/Day Years Used Date Never Smoker Smokeless Tobacco: Never Used Alcohol Use Standard Drinks/Week Comments Yes 1 (1 standard drink = 0.6 oz pure alcoho l) Sex Assigned at Date Recorded Not on file documented as of this encounter Last Filed Vital Signs Vital Sign Reading Time Taken Comments Blood Pressure 136/90 01/26/2012 5:06 PM EST Pulse 69 01/26/2012 5:06 PM EST Temperature 36.3 ??C (97.3 ??F) 01/26/2012 3:19 PM EST Respiratory Rate 16 01/26/2012 5:06 PM EST Oxygen Saturation 97% 01/26/2012 5:06 PM EST Inhaled Oxygen Concentration - - Weight 113.4 kg (250 lb) 01/26/2012 3:19 PM EST Height - - Body Mass Index - - documented in this encounter Discharge Instructions Discharge InstructionsKatja Childs RN - 01/26/2012 5:09 PM EST Colonoscopy and polyp removal What to expect after the procedure You may feel a little more gassy or bloated than usual, this is normal. You should expect the return of normal bowel function in the next 2 to 3 days. Because some polyps were removed, you may see a little blood with the next few bowel movements, this should be a small amount ( less than a few tablespoons) and will resolve on it's own. ACTIVITY Because of the sedation that you received Your judgement and reaction time are effected ?? Go home and rest for the remainder for the day. You may resume your normal activities tomorrow ?? Change from one position to the next slowly because you may lose your balance unexpectedly. ?? Be careful on stairs, as you may be unsteady. FOR THE NEXT 24 HRS ?? DO NOT DRIVE OR OPERATE MACHINERY ?? DO NOT DRINK ALCOHOLIC BEVERAGES ?? DO NOT SIGN LEGAL DOCUMENTS ?? If you are a smoker: DO NOT SMOKE WHILE YOU ARE ALONE Diet ?? Start by eating small portions of foods that ordinarily will not upset your stomach, avoid gas producing foods for the next few days. ?? Be gentle with what you choose to start with ?? A soft diet may be helpful for the next 3 days as this may help to keep your stools soft. ?? Drink plenty of fluids ( unless your doctor has told you not to). Medicines Avoid medicines that influence the way your blood clots for the next week. These would include anti-inflammatory medicine, such as ibuprofen( Advil, Motrin) and naproxen ( Aleve). If you need something for discomfort, Tylenol ( Acetaminophen) is safe if used as directed. Your Doctor will tell you when to restart your prescribed blood thinners The IV site-- slight tenderness, or redness is normal, you can use warm compresses if you get concerned. If the tenderness +/or redness increases or foul drainage and a red streak occurs, please contact your PCP immediately. When should you call for help? Call 911 anytime you think you may need emergency care. For example If you pass out (loss of consciousness) If you pass maroon or bloody stools If you have severe belly pain Call your healthcare provider or seek immediate medical care if: Your stools are black or tar like Your stools have streaks of blood that is more pronounced with each BM You have belly pain, or your belly is swollen and firm You vomit You have a fever You are very dizzy Watch closely for changes in your health, and be sure to contact your doctor if you have any problems. Your Doctor will let you know when you will need your next colonoscopy. The results of your test andyour risk for colorectal cancer will help your doctor decide how often you need to be checked. Monday-Monday Clinic [phone] 8a-5p Same Day Endo [phone] 7a-8p Otherwise contact [phone] and ask to speak to the bit bender plumbing contractor Follow up care is a ribeiro part of your treatment and safety. Be sure to make and go to all appointments, and call your doctor if you are having problems. Discharge instructions reviewed with patient who expresses understanding documented in this encounter Medications at Time of Discharge Medication Sig Dispensed Refills Start Date End Date multivitamin (THERAGRAN) Take 1 tablet by 0 tablet mouth daily. Mometasone (NASONEX) 50 0 10/21/2005 0 09/08/2015 mcg/Actuation [place] hydrochlorothiazide 0 07/27/200509/07 (HYDRODIURIL) 25 mg tablet documented as of this encounter H&P Notes Rachna Tracy MD - 01/26/2012 4:10 PM EST Gastroenterology & Hepatology Pre-Procedure History and Physical Procedure: colonoscopy Indication:polyp surveillance History of Present Illness: Pleasant 56M with history of colon polyps. No complaints PMH: HTN Tubular adenoma - 2001 Medications: No current facility-administered medications on file prior to encounter. Current Outpatient Prescriptions on File Prior to Encounter Medication Sig Dispense Refill ??? lisinopril (PRINIVIL;ZESTRIL) 10 mg tablet ??? hydrochlorothiazide (HYDRODIURIL) 25 mg tablet ??? Mometasone (NASONEX) 50 mcg/Actuation [place] Allergies: Allergies Allergen Reactions ??? 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 No smoking. Rare etoh Family History: Mother with colon cancer in her 80s Exam: Patient Vitals for the past 24 hrs: BP Temp Temp src Pulse Resp SpO2 Weight 01/26/12 1519 167/96 mmHg 36.3 ??C (97.3 ??F) Oral 63 16 96 % 113.399 kg (250 lb) Airway examined Chest- clear Heart- RRR, nl s1, s2 Abdomen- normal bowel sounds, soft, non tender Assessment and Plan: Pleasant 56M with history of colon polyps. Will proceed with colonoscopy Conscious sedation. Risks and benefits of the procedure were discussed with the patient. Consent has been signed. documented in this encounter Miscellaneous Notes Op Note - Rachna Tracy MD - 01/30/2012 8:51 AM EST Full procedure note is documented under the Procedure section of eD. Miscellaneous - Provider, Scanning - 01/26/2012 10:19 PM EST Miscellaneous - Provider, Scanning - 01/26/2012 4:22 PM EST documented in this encounter Plan of Treatment Upcoming Encounters Date Type Specialty Care Team Description 11/24/2021 Office Visit Cardiology Tyesha Guzman MD [facility] [place] [address] Sam Lord MD [facility] [place] [address] documented as of this encounter Procedures Procedure Name Priority Date/Time Associated Comments Diagnosis SURGICAL PATHOLOGY Routine 01/26/2012 5:58 PM Res ults for this REPORT EST procedure are i n the results section. SPECIMEN TO PATHOLOGY Routine 01/26/2012 4:59 PM Results for this EST procedure are i n the results section. SPECIMEN TO PATHOLOGY Routine 01/26/2012 4:59 PM Results for this EST procedure are i n the results section. COLONOSCOPY FLEXIBLE, 01/26/2012 4:30 PM PHX POYLPS WITH BX (WRVU 3.66) EST COLONOSCOPY Routine 01/26/2012 4:14 PM Results f or this EST procedure are i n the results section. documented in this encounter Results Surgical Pathology Report (01/26/2012 5:58 PM EST) [facility] Method Time Signature Surgical CERNER Pathology ? [facility] Report ? Provider: ?? RACHNA TRACY ?Pt. Name: ?? ELISE LEONARD, JESSIKA Serna ? Acc #: ?[id number] ?Pt. MRN: ?[id number] ? Col Date: ?? 01/26/20 12 ?/Sex: ?1955,(56 years),Male ? Rec Date: ?? 01/26/2012 ?LOC: ?4T ? SURGICAL PATHOLOGY ? ---Pathologic Diagnosis--- ? Endoscopic biopsies - ? A. Colonic mucosa within normal limits. ? B. Hyperplastic polyp. ? CR-PX ? 01/27/12 ? AAS ? 01/27/12 Verified by: ? Jesica Chavez MD ? Pathologist ? (Electronic Si gnature) ? The attending pathologist whose signature appears o n this report has ? reviewed all diagnostic slides and has edited the esvin ss and/or ? microscopic portion of the report in rendering the fi nal pathologic ? diagnosis. ? ---Microscopic Description--- ? Slides reviewed, microscopic description not recorded . ? ---Gross Description--- ? Labeled/Fixative: ? Ascending colon polyp, formal in. ? Qty/Size/Weight: ?Single, 0.3 x 0.2 x 0.2 cm. ? Tissue Description: ?? Soft, marshall tissue. ? Sections/Processing: ??(T1) ? B - Labeled/Fixative: Sigmoid colon polyp, formalin. ? Qty/Size/Weight: ?Two, 0.1 cm and 0.3 cm in greatest dimension. ? Tissue Description: ?? Soft, marshall tissues. ? Sections/Processing: ??(T1) ??bjm/SHB ? ---Clinical Information--- ? Specimen Submitted: ? A - Descending colon polyp ? B - Sigmoid colon polyp ? Clinical History/Diagnosis: ? Colon polyps Specimen (Source) Anatomical Collection Method Collection Time Re ceived Time Location / / Volume Laterality 01/26/2012 5:58 PM EST Rachna Tracy MD PATHOLOGY/CYTOLOGY ORDERABLE S Performing Organization Address City/[facility]/ZIP Code Phon e Number [address] [facility] Specimen to Pathology (surgical or derm) (01/26/2012 4:59 PM EST) Specimen Anatomical Collection Method Collection Time Receive d Time (Source) Location / / Volume Laterality AP Specimen 01/26/2012 4:59 PM 2 4:59 EST PM EST Narrative CERNER MILLENNIUM - 01/26/2012 4:[address] Specimen requisition ordered. ??Separate Pathology report to follow Rachna Tracy MD PATHOLOGY/CYTOLOGY ORDERABLE S Performing Organization Address City/[facility]/ZIP Code Phon e Number [address] [facility] Specimen to Pathology (surgical or derm) (01/26/2012 4:59 PM EST) Specimen Anatomical Collection Method Collection Time Receive d Time (Source) Location / / Volume Laterality AP Specimen 01/26/2012 4:59 PM 2 4:59 EST PM EST Narrative CERANTONIETTA COTAENNIUM - 01/26/2012 4:[address] Specimen requisition ordered. ??Separate Pathology report to follow Rachna Tracy MD PATHOLOGY/CYTOLOGY ORDERABLE S Performing Organization Address [facility]/State/[place] [address] CERNER MILLENNIUM COLONOSCOPY (01/26/2012 4:14 PM EST) [facility] Method Time Signature COLONOSCOPY [facility] Endoscopy Patient Name: Jessika Keith ? Procedure Date: 01/26/2012 4:14 PM ? N: [id number] ? Date of : 1955 ? Age: 56 ? Order #: [id number] ? Procedure: ? Colonoscopy Indications: ? High risk colon cancer surveillance : ? Personal history of colonic p olyps Providers: ? Rachna Tracy MD, Amarilys Feng ty, ? RN, Liana Chapman, Shuttle Bus Driver Referring MD: ?Louie Gill, DO Medicines: ? Midazolam 3 mg IV, Fentanyl 150 ? micrograms IV Complications: ? No immediate complications. Procedure: ? Pre-Anesthesia Assessment: ? - Prior to the procedure, a H istory ? and Physical was performed, a nd ? patient medications and aller gies ? were reviewed. The patient is ? competent. The risks and bene fits of ? the procedure and the sedatio n ? options and risks were discus sed with ? the patient. All questions we re ? answered and informed consent was ? obtained. Patient identificat ion and ? proposed procedure were verif ied by ? the physician and the nurse i n the ? procedure room. Mental Status ? Examination: alert and orient ed. ? Airway Examination: normal ? oropharyngeal airway and neck ? mobility. Respiratory Examina tion: ? clear to auscultation. CV ? Examination: normal. Prophyla ctic ? Antibiotics: The patient does not ? require prophylactic antibiot ics. ? Prior Anticoagulants: The pat ient has ? taken no previous anticoagula nt or ? antiplatelet agents. ASA Grad e ? Assessment: II - A patient wi th mild ? systemic disease. After revie wing the ? risks and benefits, the patie nt was ? deemed in satisfactory condit ion to ? undergo the procedure. The an esthesia ? plan was to use moderate aj tion / ? analgesia (conscious sedation ). ? Immediately prior to administ ration ? of medications, the patient w as ? re-assessed for adequacy to r eceive ? sedatives. The heart rate, ? respiratory rate, oxygen satu rations, ? blood pressure, adequacy of p ulmonary ? ventilation, and response to care ? were monitored throughout the ? procedure. The physical statu s of the ? patient was re-assessed after the ? procedure. ? The procedure, indications, b enefits, ? risks and alternatives were e xplained ? to the patient. Specifically ? discussed were potential ? complications including, but not ? limited to, bleeding, perfora tion, ? infection, missing a cancer, and ? adverse medication reactions. The ? patient was placed in the lef t ? lateral decubitus position, a nd a ? digital rectal exam was perfo rmed. ? The Colonoscope was inserted in the ? anus and under direct visuali zation, ? advanced to the terminal ileu m. ? Careful inspection was made a s the ? colonoscope was withdrawn. Th e ? colonoscopy was performed wit davis ? difficulty. The patient yumiko ated the ? procedure well. The quality o f the ? bowel preparation was good. ? Findings: ? The terminal ileum appeared normal. A sessile polyp ? was found in the descending colon. The polyp was 1 mm ? in size. The polyp was removed with a cold biopsy ? forceps. Resection and retrieval were complete. ? Estimated blood loss was minimal. A sessile polyp was ? found in the sigmoid colon. The polyp was 1 mm in ? size. The polyp was removed with a cold biopsy ? forceps. Resection and retrieval were complete. ? Multiple small and large-mouthed diverticula were ? found in the sigmoid colon and in the descending ? colon. Internal hemorrhoids were found during ? retroflexion and were small. ? Impression: ?- The examined portion of the ileu m ? was normal. ? - One 1 mm polyp in the desce nding ? colon. Resected and retrieved . ? - One 1 mm polyp in the sigmo id ? colon. Resected and retrieved . ? - Diverticulosis in the sigmo id colon ? and in the descending colon. ? - Internal hemorrhoids. Recommendation: ?- Await pathology results. ? - Repeat colonoscopy in 5 yea rs for ? surveillance. ? Rachna Tracy MD 01/26/2012 5:01 PM Number of Addenda: 0 Note Initiated On: 01/26/2012 4:14 PM Specimen (Source) Anatomical Collection Method Collection Time Re ceived Time Location / / Volume Laterality 01/26/2012 4:14 PM EST Louie Gill DO GENERAL SURGICAL ORDERABLES Performing Organization Address City/State/ZIP Code Phon e Number [facility] documented in this encounter Visit Diagnoses Not on filedocumented in this encounter Administered Medications Inactive Administered Medications - up to 3 most recent administrations Medication Order MAR Action Action Date Dose Rate Site sodium chloride 0.9% New Bag 01/26/2012 3:35 PM EST 50 mL/hr 50 mL/hr infusion 50 mL/hr, Intravenous, CONTINUOUS, Starting on Bhakti 01/26/12 at 1530, Until Bhakti 01/26/12 at 1941, Endoscopy (Day of Procedure) documented in this encounter Active and Recently Administered Medications Times are shown in EST. Continuous Medication Order 01/24/2012 01/25/2012 01/26/2012 sodium chloride 0.9% infusion (CANCELED) 1535 (New Bag - Provider: Vero Walsh RN) 50 mL/hr, at 50 mL/hr, Intravenous, CONT INUOUS, Starting Bhakti 01/26/12 at 1530, Until Bhakti 01/26/12 at 1941, Endo (Day of Procedure) PRN Medication Order 01/24/2012 01/25/2012 01/26/2012 fentaNYL 50mcg/mL injection (CANCELED) 1632 (Given - Provider: mAarilys Malcolm RN - Comment: starting sedaation)1636 (Given - Provider: Amarilys Malcolm RN - Comment: continuing sedation) ONCE PRN, Starting Bhakti 01/26/12 at 1632, Until Bhakti 01/26/12 at 1941, Pain, Intra-Operative (Intra-Procedure), Routine midazolam (VERSED) injection (CANCELED) 1632 (Given - Provider: Amarilys Malcolm RN - Comment: starting sedation)1636 (Given - Provider: Amarilys Malcolm RN - Comment: continuing sedation) ONCE PRN, Starting Bhakti 01/26/12 at 1632, Until Bhakti 01/26/12 at 1941, Sleep, Intra-Operative (Intra-Procedure), Routine documented in this encounter Care Teams Sausage Maker Relationship Specialty Start Date End Date Louie Gill DO PCP - General 01/16/[address] [place] [address] documented as of this encounter
--- OUTSIDE RECORDS SUMMARY | 2021-11-02 13:35 | XMS_ITS | Encounter Summary ---
:1955 Author Organization [facility] [place] [address] Care Team Providers Name Role Phone Louie Gill DO Primary Care Provider Encounter Details Date Type Department Care Team Description 01/28/2019 Orders Only Cardiology at [facility] Wilbur Jones, Atherosclerosis of solomon co ronary artery of solomon heart without angina pectoris (Primary Dx); [facility] Hypertension, essential, benign [facility] [address] CARDIOLOGY DEPT [phone] [place], [place] [address] Social History Tobacco Use Types [...] 11/24/2021 Office Visit Cardiology [place] [address] Sam Lord MD [facility] [place] [address] documented as of this encounter Results EKG 12 Lead (02/19/2019 8:59 AM EST) Component Value Ref Range Test Analysis Performed Pathologis t Method Time At Signature Ventricular rate 76 BPM MUSE SYSTEM Atrial Rate 76 BPM MUSE SYSTEM P-R Interval 176 ms MUSE SYSTEM QRS Duration 96 ms MUSE SYSTEM Q-T Interval 394 ms MUSE SYSTEM QTC Calculated 443 ms MUSE SYSTEM (Bezet) Calculated P Riggins 33 degrees MUSE SYSTEM Calculated R Riggins -2 degrees MUSE SYSTEM Calculated T Riggins 11 degrees MUSE SYSTEM INTERPRETATION Normal sinus rhythm MUSE SYSTEM Inferior infarct (cited on or before 18-SEP-2015) Abnormal ECG When compared with ECG of 21-NOV-2017 09:22, No significant change was found Confirmed by MD ODILIA, MOHAN ([id number]) on 02/19/2019 4:37:55 PM Specimen Anatomical Collection Method Collection Time Receive d Time (Source) Location / / Volume Laterality 02/19/2019 8:59 AM 0 4:37 EST PM EST Wilbur Serna Robert MD ECG ORDERABLES Performing Organization Address City/State/ZIP Code Phon e Number MUSE SYSTEM documented in this encounter Visit Diagnoses Diagnosis Atherosclerosis of solomon coronary arter y of solomon heart without angina pectoris - Primary Hypertension, essential, benign Essential hypertension, benign documented in this encounter Care Teams Logistics Engineering Manager Relationship Specialty Start Date End Date Louie Gill DO PCP - General 01/16/[address] [place] [address] documented as of this encounter
--- OUTSIDE RECORDS SUMMARY | 2021-11-02 13:35 | XMS_ITS | Encounter Summary ---
:1955 Author Organization [place] [place] [address] Care Team Providers Name Role Phone Louie Gill DO Primary Care Provider Encounter Details Date Type Department Care Team Description 11/16/2017 Orders Only Cardiology at [facility] Wilbur Jones, Atherosclerosis of [place] ronary artery of [place] heart without angina pectoris (Primary Dx); [facility] Lipid disorder; [facility] Hypertension, essential, pavan ign [place], [place] CENTER [address] CARDIOLOGY DEPT [phone] [place], [place] [address] Social History Tobacco Use Types [...] 11/24/2021 Office Visit Cardiology [place] [address] Sam Lord MD [facility] [address] documented as of this encounter Results EKG 12 Lead (11/21/2017 9:22 AM EDT) Component Value Ref Range Test Analysis Performed Pathologis t Method Time At Signature Ventricular rate 62 BPM MUSE SYSTEM Atrial Rate 62 BPM MUSE SYSTEM P-R Interval 190 ms MUSE SYSTEM QRS Duration 94 ms MUSE SYSTEM Q-T Interval 428 ms MUSE SYSTEM QTC Calculated 434 ms MUSE SYSTEM (Bezet) Calculated P [place] 41 degrees MUSE SYSTEM Calculated T [place] 7 degrees MUSE SYSTEM INTERPRETATION Normal sinus rhythm MUSE SYSTEM Inferior infarct (cited on or before 18-SEP-2015) Abnormal ECG When compared with ECG of 27-SEP-2016 09:00, No significant change was found I personally reviewed the tracing and edited the fellows int erpretation Confirmed by fellow Brianna Mohan ([id number]) on 8 3:43:28 PM Confirmed by MD CHAD, TASHA ([id number]) on 11/22/2017 7:46:59 AM Specimen Anatomical Collection Method Collection Time Receive d Time (Source) Location / / Volume Laterality 11/21/2017 9:22 AM 8 7:46 EDT AM EDT Wilbur Jones MD ECG ORDERABLES Performing Organization Address City/State/ZIP Code Phon e Number MUSE SYSTEM documented in this encounter Visit Diagnoses Diagnosis Atherosclerosis of [place] coronary arter y of [place] heart without angina pectoris - Primary Lipid disorder Unspecified disorder of lipoid metabolis m Hypertension, essential, benign Essential hypertension, benign documented in this encounter Care Teams Paper Machine Supervisor Relationship Specialty Start Date End Date Louie Gill DO PCP - General 01/16/[address] [place] [address] documented as of this encounter
--- OUTSIDE RECORDS SUMMARY | 2021-11-02 13:35 | XMS_ITS | Encounter Summary ---
:1955 [place] [address] Care Team Providers Name Role Phone Louie Gill DO Primary Care Provider Reason for Visit Consultation (Routine) - Closed Specialty Diagnoses / Procedures Referred By Contact Refer red To Contact Otolaryngology Diagnoses Sinus; fistula and cyst of branchial cleft Louie Gill DO [facility] Otolaryngology [address]f [address] [address] [place], [place] [address] Referral ID Status Reason Start Date Expiration Date Visits V isits Requested Authorized [id number] Closed Consult, 08/24/2015 08/23/2016 1 1 [facility] Encounter Details Date Type Department Care Team Description 09/08/2015 Office Visit Otolaryngology at [facility] Mirian Rdz, Oroantral fistula [facility] [place] [address] 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 Counseling/Discussion/Patient preferences: It may close on its own, given 1-2mm size. If not, first step is to open the sinus to normalize air pressure Next step would be local flap for closure Plan: Bookr surgery to open right maxillary sinus in ~ December time frame - after off cardiac meds from surgery. If closed before then we will cancel surgery. Recheck in office 1 -2 weeks before surgery to see if we still need it. Getting ready for surgery Medicines: 1. Stop aspirin 10 days before surgery 2. Stop ibuprofen, naproxen and other medicines in this class (called NSAID's) 3 days before surgery. This includes Advil, Motrin, Nuprin, Aleve and others too numerous to list here. 3. It is OK to take tylenol (acetaminophen) right up until the day of surgery. Getting to and from the hospital 1.Plan to have someone drive you to and from surgery. 2. You cannot drive yourself after general anesthesia. Taking care of yourself after surgery 1. Plan to have someone stay with you the night of surgery if at all possible. 2. Plan to take it easy at home for a few days after surgery. 3. We advise against travel far from the hospital and surgeon who did your procedure for the first several days. If something goes wrong, it is best if the team that knows you is available to take careof you. documented in this encounter Progress Notes Mirian Rdz MD - 09/08/2015 2:30 PM EDT Date:09/08/2015 Referring Physician: Louie Gill DO Reason for consultation: Sinus; fistula and cyst of branchial cleft Chief Complaint: History present illness: Had tooth pulled on 02/2014 and the dentist said he has a void. Dr. Sousa, ENT, [facility] did a CT. On 02/2015 dentist said it is still open and puss is coming out. Chu Keith is a 60 y.o. male. Had tooth removed in right maxilla in 2014 - they noted an abnormal connection at that time between tooth site and sinus Seen by Dr. Sousa in [facility] Tried to let it heal on its own based on input from ENT and oral surgery Saw new dentist in February 2015 who noted fistula still there, was sent [facility] -they did a fistula repair In April his regular dentist checked and was referred back to ENT because it was still present Had an MT in July 2015 - likely had been having angina during spring when seen by ENT and was complaining of ear pain at that time. Should wait for surgery based on MT for at least three months A lot of the sinus drainage has stopped. Past medical and surgical history: Patient Active Problem List Diagnosis Code ??? Seborrheic keratosis L82.1 Past Surgical History Procedure Laterality Date ??? Pro colonoscopy, biopsy 01/26/2012 COLONOSCOPY FLEXIBLE, WITH BX [facility] ??? Nasal septum surgery 20 years old ??? Coronary angioplasty with stent placement 08/10/2015 4 stents Medications Current Outpatient Prescriptions: ??? aspirin 81 mg Tablet, Delayed Release (E.C.), Take 81 mg by mouth daily., Disp: , Rfl: ??? ticagrelor (BRILINTA) 90 mg Tablet, Take 90 mg by mouth 2 times daily., Disp: , Rfl: ??? lisinopril (PRINIVIL;ZESTRIL) 20 mg Tablet, Take 20 mg by mouth daily., Disp: , Rfl: ??? carvedilol (COREG) 6.25 mg Tablet, Take 6.25 mg by mouth 2 times daily (with meals)., Disp: , Rfl: ??? atorvastatin (LIPITOR) 80 mg Tablet, Take 80 mg by mouth every evening., Disp: , Rfl: ??? CALCIUM CARBONATE/VITAMIN D3 (VITAMIN D-3 ORAL), Take 1 tablet by mouth daily., Disp: , Rfl: ??? ASCORBATE CALCIUM (VITAMIN C ORAL), Take 1 tablet by mouth daily., Disp: , Rfl: ??? CYANOCOBALAMIN, VITAMIN B-12, (VITAMIN B-12 ORAL), Take 1 tablet by mouth daily., Disp: , Rfl: ??? multivitamin (THERAGRAN) tablet, Take 1 tablet by mouth daily. , Disp: , Rfl: Social history: Lives in : [place] [phone] . [employer], retiring now. 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 Tobacco: quit after 5 months when young Alcohol: reports that he drinks alcohol. Marijuana, other street drugs: none PHYSICAL EXAM Vitals: Blood pressure 132/72, pulse 66, height 182.9 cm (6'), weight (!) 117.2 kg (258 lb 6.4 oz). GENERAL: He looks well COMMUNICATION: Voice strong, no cracks, breaks, or hoarseness. No breathiness. INTEGUMENT: No lesions of head, neck, face. 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 ORAL CAVITY: Normal exam of oral tongue Normal mucosa without lesions, moist Floor of mouth is soft. Dentition shows an open socket right maxilla molar, first. Thre is a pinpont opening that I can get only a cottontip metal 1mm applicator through. LYMPHATIC: No adenopathy of pre or post auricular region, or wihin the neck PROCEDURE Adequate view of the sinus openings could not be obtained with anterior rhinoscopy The patient was topically anesthesized and decongested with a 1:1 mixture of lidocaine and oxymetazoline. A rigid 30 degree scope was then passed into the right nare. Findings: - the right OMC is approachable surgically, it is visible and reachable with a pediatric 30 degree scope. Patient tolerated the procedure without complication. 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 Has not had a rotational flap or sinus surgery approach yet. Counseling/Discussion/Patient preferences: It may close on its own, given 1-2mm size. If not, first step is to open the sinus to normalize air pressure Next step would be local flap for closure Plan: Book him for surgery to open right maxillary sinus in November time frame - after off cardiac meds from surgery. If closed before then we will cancel surgery. Recheck in office 1 week before surgery to see if we still need it. Copy of this note will be sent to referring physician. documented in this encounter Plan of Treatment Upcoming Encounters Date Type Specialty Care Team Description 11/24/2021 Office Visit Cardiology [place] [address] Sam Lord MD [facility] [place] [address] documented as of this encounter Visit Diagnoses Diagnosis Oroantral fistula Chronic maxillary sinusitis documented in this encounter Care Teams Supervisor Riveting Relationship Specialty Start Date End Date Louie Gill DO PCP - General 01/16/[address] [place] [address] documented as of this encounter
--- OUTSIDE RECORDS SUMMARY | 2021-11-02 13:35 | XMS_ITS | Encounter Summary ---
:1955 Author Organization [facility] [place] [address] Care Team Providers Name Role Phone Louie Gill DO Primary Care Provider Encounter Details Date Type Department Care Team Description 09/09/2015 Telephone Otolaryngology at [facility] [place] [address] Social History Tobacco Use Types Packs/Day [...] this encounter Miscellaneous Notes Telephone Encounter - Farzad Green - 09/09/2015 11:40 AM EDT Set up surgery in clinic for 12/21 documented in this encounter Plan of Treatment Upcoming Encounters Date Type Specialty Care Team Description 11/24/2021 Office Visit Cardiology Tyesha Guzman MD [facility] [place] [address] Sam Lord MD [facility] [place] [address] documented as of this encounter Visit Diagnoses Not on filedocumented in this encounter Care Teams Rehabilitation Construction Specialist Relationship Specialty Start Date End Date Louie Gill DO PCP - General 01/16/[address] [place] [address] documented as of this encounter
--- OUTSIDE RECORDS SUMMARY | 2021-11-02 13:35 | XMS_ITS | Encounter Summary ---
:1955 Author Organization [facility] Address [address] [place] [address] Care Team Providers Name Role Phone JairoLouie davies Primary Care Provider Encounter Details Date Type Department Care Team Description 02/19/2019 Office Visit Cardiology at [facility] Wilbur Jones, Atherosclerosis of [place] co ronary artery of [place] heart without angina pectoris; [facility] Hypertension, essential, benign; Drive [facility] Lipid disorder [facility] [address] CARDIOLOGY DEPT [phone] [place] [id number] Social History Tobacco Use Types Packs/Day Years [...] Sign Reading Time Taken Comments Blood Pressure 128/74 02/19/2019 8:49 AM EST Pulse 85 02/19/2019 8:49 AM EST Temperature - - Respiratory Rate - - Oxygen Saturation 96% 02/19/2019 8:49 AM EST Inhaled Oxygen Concentration - - Weight 121.7 kg (268 lb 6.4 oz) 02/19/2019 8:49 AM EST Height 182.9 cm (6') 02/19/2019 8:49 AM EST Body Mass Index 36.4 02/19/2019 8:49 AM EST documented in this encounter Progress Notes Bne Sanchez MD - 02/19/2019 9:00 AM EST Images from the original note were not included. [facility] [place] [address] [place] [address] Chu Keith [id number] 02/21/2019 REFERRING PROVIDER: Louie Gill PROBLEM LIST Patient Active Problem List Diagnosis ??? Hypertension, essential, benign ??? Atherosclerotic heart disease of creek coronary artery without angina pectoris ??? Lipid disorder ??? Seborrheic keratosis HISTORY OF PRESENT ILLNESS: Mr. Chu Keith is a 63 year old man with a history of coronary artery disease s/p BMS x 3 to RCAand BMS x 1 to diag (2015), hypertension and hyperlipidemia who presents for a follow up visit. Since completing cardiac rehab program, he has been participating in a wellness program at [facility] in [facility]. He denies any chest pain or shortness of breath on exertion or at rest. He works on hand bike, arm exercises, and core exercises for about an hour 2-3 times a week. He wants to get back totreadmill exercises but he hasn't been able to due to R knee issue which he thinks is related to Cai's cyst. The pain is behind his R knee, and worse with bending the knee or kneeling. He denies any claudications. He has been taking a lower dose of atorvastatin (40mg QD) since October 2018 due to joint/muscle pain. He has not noticed any improvement in his symptoms since lowering the dose. He never needed SL nitro since coronary intervention but would like to get a refill. He denies any weight gain, leg swelling, orthopnea or PND. PAST MEDICAL HISTORY: Past Medical History: Diagnosis Date ??? Heart attack 08/08/2015 REVIEW OF SYSTEMS: [facility] Pre Appointment Symptom Review 02/19/2019 Angina (chest discomfort) Frequency: None Shortness of breath: Almost never Leg swelling: No Dizziness/light headedness: No Loss of consciousness: No Difficulty lying flat (because of breathing): No Chills: No Fatigue: No Unintended weight change: No Nosebleeds: No Difficulty swallowing: No Visual disturbances: No Frequent cough: No Wheezing: No Snoring: Yes Abdominal pain: No Diarrhea: No Blood in bowel movement: No Black, tarry bowel movement: No Nausea/vomiting: No Heat/cold intolerance: No Problems urinating: No Joint pains: Yes Muscle pain: No Rash: No Weakness/numbness: No Speech problems: No Easy bruising/bleeding: No Depression: No Anxiety: No Poor sleep: No General: [No weight loss, fatigue, anorexia, insomnia, or fever.] Eyes: [No visual loss, double vision, drainage, eye pain, or dry eyes.] ENT: [No sore throat or dry mouth.] Pulmonary: [No shortness of breath, cough, or hemoptysis.] Hem/Lymph: [No swollen glands, fever, or bleeding.] GI: [No abdominal pain, change in bowel habits, melena, nausea, vomiting or dysphagia.] : [No urethral discharge, dysuria, frequency, or nocturia.] Endocrine: [No hot spells, cold spells.] Musculoskeletal: + joint pain [No limb pain, or joint swelling.] Neuro: [No focal weakness, ataxia, confusion, paresthesias or headache.] Skin: [No rashes or dry skin.] Psych: [No depression, anxiety, suicidal ideation.] Cardiac: See HPI FAMILY HISTORY: Both mother and father with CAD. Father from complications of emphysema. SOCIAL HISTORY: Smoked cigarettes briefly when he was a teenager. Rarely drinks alcohol. Denies any illicit drug use. Lives with his . 4 children and 10 grandchilren. 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 MEDICATIONS: Current Outpatient Medications Medication Sig Dispense Refill ??? nitroGLYcerin (NITROSTAT) 0.4 mg Tablet, Sublingual Place 1 tablet under the tongue every 5 minutes as needed for Chest pain. 10 tablet 0 ??? BETA-CAROTENE,A,-VITS C,E/MINS (EYE HEALTH ORAL) Take 1 capsule by mouth daily. [facility]Promise ??? lisinopril (PRINIVIL;ZESTRIL) 10 mg Tablet Take 10 mg by mouth daily. ??? aspirin 81 mg Tablet, Delayed Release (E.C.) Take 81 mg by mouth daily. ??? carvedilol (COREG) 6.25 mg Tablet Take 6.25 mg by mouth 2 times daily (with meals). ??? CALCIUM CARBONATE/VITAMIN D3 (VITAMIN D-3 ORAL) Take 1 tablet by mouth daily. ??? multivitamin (THERAGRAN) tablet Take 1 tablet by mouth daily. ??? atorvastatin (LIPITOR) 80 mg Tablet Take 1 tablet by mouth daily. 90 tablet 3 No current facility-administered medications for this visit. ALLERGIES: Latex; Latex, natural rubber; and Penicillins PHYSICAL EXAMINATION: Vital Signs: BP 128/74 Pulse 85 Ht 182.9 cm (6') Wt 121.7 kg (268 lb 6.4 oz) SpO2 96% BMI 36.40 kg/m?? Exam Details: General - No acute distress. Alert and oriented to person, place and time. ENT - Mouth moist without lesions. Eyes - EOMI. Not jaundiced. Noninjected. Neck - No lymphadenopathy. No thyromegaly. JVD 5 cm above RA. No carotid bruit bilaterally. Lungs - Clear to auscultation bilaterally. Heart - RRR. Normal S1,S2. No audible murmurs, gallops or rubs. Abdomen/GI - Soft, nontender, normal active bowel sounds, neg hsm or masses. Extremities - Extremities are symmetric. No peripheral edema. 2+ bilateral popliteal, DP and PT pulses. No mass/cyst palpated behind R knee. DATA: EKG 02/19/2019: Sinus rhythm, evidence of prior inferior infarct, no new ST-T changes ASSESSMENT: Mr. Chu Keith is a 63 year old man with a history of coronary artery disease s/p BMS x 3 to RCAand BMS x 1 to diag (2015), hypertension and hyperlipidemia who presents for a follow up visit. He is doing well overall without any new anginal or heart failure symptoms. Exam is unremarkable with good peripheral pulses. Both blood pressure and heart rate are generally well controlled. The only medication change recommended is increasing atorvastatin to 80mg as his LDL was previously well controlled on this dose. 1. Coronary artery disease s/p PCI to RCA and diag 2. Hypertension 3. Hyperlipidemia PLAN: - Increase atorvastatin to 80mg QD - Plan for 1 year follow up or sooner if new symptoms develop Thank you for allowing us to participate in the care of this patient. The patient was seen and discussed with Dr. Jones. Ben (Jillian) MD Daniel Cardiovascular Medicine Fellow Pager [phone] Cardiovascular Medicine Attending I have interviewed and examined the patient and reviewed the information in this note. I agree with the details as written.?The assessment and plan were formulated in discussion with me and I agree with them as documented. Wilbur Jones MD documented in this encounter Plan of Treatment Upcoming Encounters Date Type Specialty Care Team Description 11/24/2021 Office Visit Cardiology Tyesha Guzman MD [facility] [place] [address] Sam Lord MD [facility] [address] documented as of this encounter Procedures Procedure Name Priority Date/Time Associated Diagnosis Comme nts EKG 12-LEAD Routine 02/19/2019 8:59 AM Atherosclerosis of Res ults for this EST creek coronary artery proce dure are in of [place] heart without the results angina pectoris section. Hypertension, essential, benign documented in this encounter Results EKG 12 Lead (02/19/2019 8:59 AM EST) Component Value Ref Range Test Analysis Performed Pathologis t Method Time At Signature Ventricular rate 76 BPM MUSE SYSTEM Atrial Rate 76 BPM MUSE SYSTEM P-R Interval 176 ms MUSE SYSTEM QRS Duration 96 ms MUSE SYSTEM Q-T Interval 394 ms MUSE SYSTEM QTC Calculated 443 ms MUSE SYSTEM (Bezet) Calculated P [place] 33 degrees MUSE SYSTEM Calculated R [place] -2 degrees MUSE SYSTEM Calculated T [place] 11 degrees MUSE SYSTEM INTERPRETATION Normal sinus rhythm MUSE SYSTEM Inferior infarct (cited on or before 18-SEP-2015) Abnormal ECG When compared with ECG of 21-NOV-2017 09:22, No significant change was found Confirmed by MD HARTLEY SALVATORE ([id number]) on 02/19/2019 4:37:55 PM Specimen Anatomical Collection Method Collection Time Receive d Time (Source) Location / / Volume Laterality 02/19/2019 8:59 AM 0 4:37 EST PM EST Wilbur Jones MD ECG ORDERABLES Performing Organization Address City/State/ZIP Code Phon e Number MUSE SYSTEM documented in this encounter Visit Diagnoses Diagnosis Atherosclerosis of [place] coronary arter y of [place] heart without angina pectoris Hypertension, essential, benign Essential hypertension, benign Lipid disorder Unspecified disorder of lipoid metabolis m documented in this encounter Care Teams Interventional Radiology Tech Relationship Specialty Start Date End Date Louie Gill DO PCP - General 01/16/[address] [place] [address] documented as of this encounter
--- OUTSIDE RECORDS SUMMARY | 2021-11-02 13:35 | XMS_ITS | Encounter Summary ---
:1955 Author Organization [facility] [place] [address] Care Team Providers Name Role Phone Louie Gill DO Primary Care Provider Encounter Details Date Type Department Care Team Description 09/27/2016 Laboratory Appointment Lab 3L [facility] [place] [id number] Social History Tobacco Use Types Packs/Day Years [...] 11/24/2021 Office Visit Cardiology Tyesha Guzman MD [facility] [place] [address] Sam Lord MD [facility] [address] documented as of this encounter Procedures Procedure Name Priority Date/Time Associated Diagnosis Comme nts HEMOGRAM Routine 09/27/2016 7:26 AM Healthcare Results f or this EDT maintenance procedure are i n the results section. DIFFERENTIAL, Routine 09/27/2016 7:26 AM Healthcare Results for this AUTOMATED EDT maintenance procedure are i n the results section. CBC (WITH DIFF) Routine 09/27/2016 7:26 AM Healthcare EDT maintenance LIPID PANEL (REFLEX Routine 09/27/2016 7:26 AM Healthcare Re sults for this DIRECT LDL) EDT maintenance procedure are i n the results section. BASIC METABOLIC Routine 09/27/2016 7:26 AM Healthcare Result s for this PANEL (NON-FASTING) EDT maintenance procedur e are in the results section. documented in this encounter Results (ABNORMAL) Differential, Automated (09/27/2016 7:26 AM EDT) [facility] Method Time Signature Neutrophils % 68.2 % [facility] Neutr Abs (ANC) 8.18 (H) 1.70 - [facility] 6.10 [facility] x10(3)/[facility] LABORATORY Lymphocytes % 19.8 % [facility] Lymphocytes Abs 2.4 0.9 - 3.2 [facility] x10(3)/[facility] LABORATORY Monocytes % 6.5 % [facility] Monocyte Abs 0.8 0.3 - 0.9 [facility] x10(3)/[facility] LABORATORY Eosinophils % 3.5 % [facility] Eosinophils Abs 0.4 0.0 - 0.4 [facility] x10(3)/[facility] LABORATORY Basophils % 0.7 % [facility] Basophils Abs 0.1 0.0 - 0.1 [facility] x10(3)/[facility] LABORATORY Immature Gran % 1.30 % [facility] Comment: Immature granulocytes(IG's)percentage an d absolute count will include metamyelocytes, myelocytes, and promyelo cytes. Blood smears from CBCs yielding IG's will be scanned manually for concor dance. If this scan disagrees with the automated IG or if promyelocytes are not ed, a manual differential will be performed. Noy Gran Abs 0.15 (H) 0.00 - 0.04 x10(3)/[facility] LABORATORY Specimen Anatomical Collection Method Collection Time Receive d Time (Source) Location / / Volume Laterality Blood specimen 09/27/2016 7:26 AM 017 7:31 (specimen) EDT AM EDT Resulting Agency Comment Spec In Lab Wilbur Jones MD HEMATOLOGY ORDERABLES Performing Organization Address City/State/Z[place] [address] (ABNORMAL) Hemogram (09/27/2016 7:26 AM EDT) Analysis Performed At Patho logist Time Signature WBC 12.0 (H) 4.0 - 9.5 [facility] x10(3)/[facility] LABORATORY RBC 5.03 4.58 - [place] JAKE 5.54 [facility] x10(6)/[facility] LABORATORY Hemoglobin 14.8 13.7 - [facility] 16.[facility] gm/dL [facility] Hematocrit 42.2 40.5 - [facility] [place] 48.5 % [facility] MCV 83.9 82.9 - [facility] [place] 93.1 [facility] LABORATORY MCH 29.4 27.5 - [place] 32.1 pg [facility] MCHC 35.1 32.[address] [facility] gm/dL [facility] Platelets 278 145 - 357 [facility] x10(3)/[facility] LABORATORY RDWSD 39.8 36.0 - [facility] [place] 45.0 [facility] LABORATORY RDWCV 13.1 11.4 - [facility] [place] 13.8 % [facility] MPV 9.2 7.6 - 12.9 [facility] nRBC % Auto 0.0 % [facility] nRBC Abs Auto 0.000 0.000 - [facility] 0.000 [facility] x10(3)/[facility] LABORATORY Specimen Anatomical Collection Method Collection Time Receive d Time (Source) Location / / Volume Laterality Blood specimen 09/27/2016 7:26 AM 017 7:31 (specimen) EDT AM EDT Resulting Agency Comment Spec In Lab Wilbur Jones MD HEMATOLOGY ORDERABLES Performing Organization Address City/State/[place] [address] Basic Metabolic Panel (non-fasting) (09/27/2016 7:26 AM EDT) athologist Signature Glucose Lvl 118 65 - 199 [facility] mg/dL [facility] Comment: Diabetes: >=200 mg/dL plus symp toms BUN 20 10 - 20 mg/dL [facility] Creatinine 1.03 0.80 - 1.50 mg/dL [facility] Comment: Please note that the pediatric reference intervals supplied above were not validated at [facility]. Results from pediatri c patients should be interpreted in conjunction to the patient's age, height and muscle mass. Sodium 138 135 - 145 mmol/L [facility] Potassium 4.6 3.5 - 5.0 mmol/L [facility] Comment: Please note: ??Patients with WBC >100,00 0 may have falsely elevated Potassium levels. ??For accurate Potassium quantif ication in these patients send serum separator tube (gold top) for subsequent determinations. ??Contact the Clinical Chemistry Laboratory if there are any qu estions. Chloride 101 98 - 107 mmol/L [facility] CO2 23 22 - 31 mmol/L [facility] Anion Gap 14 5 - 15 mmol/L [facility] Calcium 9.2 8.5 - 10.5 mg/dL [facility] Estimated GFR >60 >=60 [facility] Comment: This estimated GFR (eGFR) value was calc ulated using the MDRD equation which has been validated on patients between t he ages of 18 and 70. The MDRD should not be used to assess kidney function in patients < 18 years of age or in patients with extremes of body mass, or in patients with acute kidney failure. This value should be multiplied by 1.2 f or patients. For further information please copy and past e the following links into your internet browser. http://Freebeepay/DHnkdep http://Freebeepay/DHMCnkf Specimen Anatomical Collection Method Collection Time Receive d Time (Source) Location / / Volume Laterality Blood specimen 09/27/2016 7:26 AM 017 7:31 (specimen) EDT AM EDT Resulting Agency Comment Spec In Lab Wilbur Jones MD CHEMISTRY ORDERABLES Performing Organization Address City/State/ZIP [place] [address] (ABNORMAL) Lipid Panel (09/27/2016 7:26 AM EDT) [facility] Method Time Signature Chol, Total 215 <=239 [place] mg/dL [facility] Triglycerides 331 (H) <=199 [place] mg/dL [facility] HDL 46 >=40 [place] mg/dL [facility] LDL Cholesterol 103 <=190 [facility] mg/dL [facility] Chol/HDL Ratio 4.7 ratio [facility] Lipid See Note [place] Interpretation [facility] Comment: Lipid management should be guided by a p atient? s ASCVD risk, goals and preferences. ACC/AHA Guidelines recommend high intens ity statin if clinical ASCVD or LDL greater than or equal to 190 mg/dL. http://SimpleLegalurTeach Me To Be.com/GNF-YGP-Idxyfaabv Adults aged 40-75 with LDL 70-189 mg/dL should have their 10 year ASCVD risk estimated with the ACC/AHA ASCVD risk es timator http://tools.acc.org/ZGBPB-Yowd-Aqjbnvfd r/ Statin should be discussed if risk great er than or equal to 7.5% in non-diabetics. With diabetes, moderate i ntensity statin is recommended if risk less than 7.5%, high intensity if risk g reater than or equal to 7.5%. Annual lipid monitoring on statins is no t necessary. Evaluate secondary causes of Triglycerid es greater than 500 mg/dL or LDL greater than 190 mg/dL: See table 6 of A CC/AHA Guideline. Lifestyle modification is a critical com ponent of ASCVD risk reduction. Specimen Anatomical Collection Method Collection Time Receive d Time (Source) Location / / Volume Laterality Blood specimen 09/27/2016 7:26 AM 017 7:31 (specimen) EDT AM EDT Resulting Agency Comment Spec In Lab Wilbur Jones MD CHEMISTRY ORDERABLES Performing Organization Address City/State/Z[place] [address] documented in this encounter Visit Diagnoses Diagnosis Healthcare maintenance Routine general medical examination at a health care facility documented in this encounter Care Teams Vehicle Mechanic Relationship Specialty Start Date End Date Louie Gill DO PCP - General 01/16/[address] [place] [address] documented as of this encounter
--- OUTSIDE RECORDS SUMMARY | 2021-11-02 13:35 | XMS_ITS | Encounter Summary ---
:1955 Author Organization [facility] [address] Care Team Providers Name Role Phone Louie Gill Primary Care Provider Encounter Details Date Type Department Care Team Description 07/01/2014 Hospital Encounter Radiology Library at RdzMirian leon MD [facility] [address] [place] [address] [place] [address] [phone] Social History Tobacco Use Types Packs/Day Years Used Date Never Smoker Smokeless Tobacco: Never Used Alcohol Use Standard Drinks/Week Comments Yes 1 (1 standard drink = 0.6 oz pure alcoho l) Sex Assigned at Date Recorded Not on file documented as of this encounter Medications at Time of Discharge Medication Sig Dispensed Refills Start Date End Date hydroCHLOROthiazide Daily 0 12/07/2012 (Hydrodiuril) 25 mg Tablet multivitamin (THERAGRAN) Take 1 tablet by 0 tablet mouth daily. pravastatin (PRAVACHOL) 10 mg Take 10 mg by 0 09/08/2015 tablet mouth daily. Mometasone (NASONEX) 50 0 10/21/2005 0 09/08/2015 mcg/Actuation [place] hydrochlorothiazide 0 07/27/200509/07 (HYDRODIURIL) 25 mg tablet documented as of this encounter Plan of Treatment Upcoming Encounters Date Type Specialty Care Team Description 11/24/2021 Office Visit Cardiology Tyesha Guzman MD [facility] [place] [address] Sam Lord MD [facility] [place] [address] documented as of this encounter Procedures Procedure Name Priority Date/Time Associated Diagnosis Comme nts FILM LIBRARY Routine 07/01/2014 4:00 PM Pain Results f or this STORAGE ONLY CT EDT procedure ar e in HEAD the results section. documented in this encounter Results Film Library- Storage Only CT Head (07/01/2014 4:00 PM EDT) Specimen (Source) Anatomical Location Collection Method / Collectio n Time Received Time / Laterality Volume Narrative RAD - 08/26/2015 3:56 PM EDT This exam is for storage only and is aut o-finalizing. Mirian Rdz MD IMG FILM LIBRARY ORDERABLES Performing Organization Address City/State/ZIP Code Phon e Number [place], [place] documented in this encounter Visit Diagnoses Diagnosis Pain Generalized pain documented in this encounter Care Teams Pheresis Specialist Relationship Specialty Start Date End Date Louie Gill DO PCP - General 01/16/[address] [place] [address] documented as of this encounter
--- OUTSIDE RECORDS SUMMARY | 2021-11-02 13:35 | XMS_ITS | Encounter Summary ---
:1955 Author Organization [facility] [place] [address] Care Team Providers Name Role Phone Louie Gill DO Primary Care Provider Reason for Visit Reason Comments Pre-op Exam Encounter Details Date Type Department Care Team Description 12/08/2015 Office Visit Otolaryngology at [facility] Munira Cody, Fistula of maxillary [facility] Giles marie [place] [address] [facility] [phone] CENTER OTOLARYNGOLOGY DEPT. [place], [place] [address] Social History Tobacco Use Types [...] Sign Reading Time Taken Comments Blood Pressure 146/72 12/08/2015 1:57 PM EDT Pulse 81 12/08/2015 1:57 PM EDT Temperature - - Respiratory Rate - - Oxygen Saturation - - Inhaled Oxygen Concentration - - Weight 113.4 kg (250 lb) 12/08/2015 1:57 PM EDT Height 182.9 cm (6') 12/08/2015 1:57 PM EDT Body Mass Index 33.91 12/08/2015 1:57 PM EDT documented in this encounter Progress Notes Munira Cody, COIL MAKER - 12/08/2015 2:00 PM EDT Date of Visit:12/08/2015 Location of Visit: Otolaryngology Clinic, [facility] Patient: Chu Keith 1955, [id number] Chief Complaint: Chu is a 60 year old with an open socket along the right maxilla with a pinpointopening. Here for an evaluation before planned surgery to close it with . Interval History: Chu is a 60 year old with the above history. Here for an exam before he is scheduled for a surgical repair of a right maxilla fistula. He feels it may have closed. He denies any sinus issues or purulent drainage from the mouth. In the past he was able to perform a valsalva maneuver and have air come out the fistula. He has not been able to do that recently. Eating and drinking wnl. Past Medical History: Other than above, Past Medical History Diagnosis Date ??? Heart attack 08/08/2015 . Medications: Current Outpatient Prescriptions on File Prior to Visit Medication Sig Dispense Refill ??? nitroGLYcerin (NITROSTAT) 0.4 mg Tablet, Sublingual Place 0.4 mg under the tongue every 5 minutes as needed for Chest pain. ??? aspirin 81 mg Tablet, Delayed Release (E.C.) Take 81 mg by mouth daily. ??? ticagrelor (BRILINTA) 90 mg Tablet Take 90 mg by mouth 2 times daily. ??? carvedilol (COREG) 6.25 mg Tablet Take 6.25 mg by mouth 2 times daily (with meals). ??? atorvastatin (LIPITOR) 80 mg Tablet Take 80 mg by mouth every evening. ??? CALCIUM CARBONATE/VITAMIN D3 (VITAMIN D-3 ORAL) Take 1 tablet by mouth daily. ??? ASCORBATE CALCIUM (VITAMIN C ORAL) Take 1 tablet by mouth daily. ??? CYANOCOBALAMIN, VITAMIN B-12, (VITAMIN B-12 ORAL) Take 1 tablet by mouth daily. ??? multivitamin (THERAGRAN) tablet Take 1 tablet by mouth daily. No current facility-administered medications on file prior to visit. Allergies:Latex and Penicillins ROS: Pertinent positive findings discussed above. No other findings on review of constitutional, visual, cardiovascular, respiratory, gastrointestinal, genitourinary, musculoskeletal, dermatologic, neurological, psychiatric, endocrine, hematologic or immunologic systems. Physical Examination: Blood pressure 146/72, pulse 81, height 182.9 cm (6'), weight (!) 113.4 kg (250 lb). General: Age-appropriate interactive behavior in no acute distress. Face:Symmetric without dysmorphic features. Ears: Auricles symmetric bilaterally without lesions. External auditory canals are clear. On the left, tympanic membrane is clear. Middle ear on the left without middle ear pathology. On the right, tympanic membrane clear. Middle ear on the right without middle ear pathology. Nose: Patent anteriorly but very narrow passages; Bony pyramid with saddle deformity. Mouth: Lips and gingiva pink, moist, without lesions. Dentition with an open socket on the right maxilla area with no obvious fistula. Tongue and floor of mouth soft without lesions or masses. Hard palate without lesions. Pharynx: Soft palate without lesions; uvula intact without evidence of submucus cleft palate. Oropharynx symmetric, tonsils 2+. Neck: No lymphadenopathy. 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 Plan: No evidence of a fistula on exam today. Monitor for new issues. The surgery can be canceled. F/u with for a recheck. Munira CALDERÓN [facility] Otolaryngology-Head and Neck Surgery [place], [place] [address] documented in this encounter Plan of Treatment Upcoming Encounters Date Type Specialty Care Team Description 11/24/2021 Office Visit Cardiology Tyesha Guzman MD [facility] [place] [address] Sam Lord MD [facility] [place] [address] documented as of this encounter Visit Diagnoses Diagnosis Fistula of maxillary sinus documented in this encounter Care Teams Microelectronics Assembler Relationship Specialty Start Date End Date Louie Gill DO PCP - General 01/16/[address] [place] [address] documented as of this encounter
--- OUTSIDE RECORDS SUMMARY | 2021-11-02 13:35 | XMS_ITS | Encounter Summary ---
:1955 Author Organization [facility] Address [facility] [address] [place] [place] [address] Care Team Providers Name Role Phone Louie Gill Primary Care Provider Encounter Details Date Type Department Care Team Description 09/27/2016 Office Visit Cardiology at [facility] Wilbur Jones, Healthcare maintenance; [facility] Atherosclerosis of [place] coronary arter y of [place] heart without angina pectoris; Drive [facility] Lipid disorder; [place], [place] CENTER Hypertension, essential, benign [id number] CARDIOLOGY DEPT [phone] [place], [place] [address] Social History Tobacco Use Types [...] Sign Reading Time Taken Comments Blood Pressure 130/80 09/27/2016 8:45 AM EDT Pulse 76 09/27/2016 8:45 AM EDT Temperature - - Respiratory Rate - - Oxygen Saturation 93% 09/27/2016 8:45 AM EDT Inhaled Oxygen Concentration - - Weight 120.7 kg (266 lb 1.6 oz) 09/27/2016 8:45 AM EDT Height 182.9 cm (6') 09/27/2016 8:45 AM EDT Body Mass Index 36.09 09/27/2016 8:45 AM EDT documented in this encounter Progress Notes Wilbur Jones MD - 09/27/2016 9:00 AM EDT Images from the original note were not included. changes [facility] [place] [address] [place] [address] Jessika Christie [id number] 09/27/2016 REFERRING PROVIDER: No ref. provider found PROBLEM LIST Patient Active Problem List Diagnosis ??? Hypertension, essential, benign ??? Atherosclerotic heart disease of [place] coronary artery without angina pectoris ??? Lipid disorder ??? Seborrheic keratosis HISTORY OF PRESENT ILLNESS: Mr. Christie is is being seen for a follow-up cardiovascular examination. He was seen approximately one year ago by Dr. Demar Blair. He had a myocardial infarction during the summer of 2015 while vacationing in [place]. He underwent cardiac catheterization in [facility] which demonstrated significant stenoses in the right coronary artery and diagonal branch of the LAD. 3 bare metal stents wereplaced in the right coronary artery and another BMS was placed in the diagonal branch. Report of an echocardiogram from that hospitalization indicated inferior hypokinesis and ejection fraction of approximately 60%. Over the past year, he has felt well. He has had no symptoms of jaw discomfort (the symptom of his heart attack), nor chest or back discomfort. He denies shortness of breath with exertion or at rest. He has had no palpitations lightheadedness or syncope. He denies orthopnea and nocturnal dyspnea or leg swelling. He is active. He exercises at a health club 3 times per week for approximately one hour each session. He also walks frequently. 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 His risk factors include hypertension and dyslipidemia. He does not smoke cigarettes. He is not aware of diabetes (though today's laboratory work shows glucose intolerance). He has a family history of coronary artery disease. He had run out of atorvastatin and has not taken it for approximately a week, awaiting a refill. PAST MEDICAL HISTORY: Past Medical History: Diagnosis Date ??? Heart attack 08/08/2015 REVIEW OF SYSTEMS: General: [No weight loss, fatigue, anorexia, insomnia, [...] Endocrine: [No hot spells, cold spells.] Musculoskeletal: [No limb pain, joint pain, or joint swelling.] Neuro: [No focal weakness, ataxia, confusion, paresthesias or headache.] Skin: [No rashes or dry skin.] Psych: [No depression, anxiety, suicidal ideation.] Cardiac: See HPI FAMILY HISTORY: Family History Problem Relation Age of Onset ??? Heart Disease Mother ??? Colorectal Cancer Mother ??? Coronary Artery Disease Mother ??? Heart Disease Father ??? Coronary Artery Disease Father ??? Heart Disease Sister ??? Cerebrovascular Accident Sister ??? Depression Sister ??? Heart Disease Sister SOCIAL HISTORY: Social History Substance Use Topics ??? Smoking status: Former Smoker Types: Cigarettes ??? Smokeless tobacco: Never Used Comment: .25 - .5 daily for 6 months. ??? Alcohol use Yes Comment: occasionally MEDICATIONS: Current Outpatient Prescriptions Medication Sig Dispense Refill ??? BETA-CAROTENE,A,-VITS C,E/MINS (EYE HEALTH ORAL) Take 1 capsule by mouth daily. [facility]Promise ??? lisinopril (PRINIVIL;ZESTRIL) 10 mg Tablet Take 10 mg by mouth daily. ??? atorvastatin (LIPITOR) 80 mg Tablet Take 1 tablet by mouth every evening. 90 tablet 3 ??? aspirin 81 mg Tablet, Delayed Release [...] Take 1 tablet by mouth daily. ??? nitroGLYcerin (NITROSTAT) 0.4 mg Tablet, Sublingual Place 0.4 mg under the tongue every 5 minutes as needed for Chest pain. No current facility-administered medications for this visit. ALLERGIES: Latex; Latex, natural rubber; and Penicillins PHYSICAL EXAMINATION: Vital Signs: BP 130/80 Pulse 76 Ht 182.9 cm (6') Wt (!) 120.7 kg (266 lb 1.6 oz) SpO2 93% BMI 36.09 kg/m2 Exam Details: The patient is oriented to person, place, and time, and in no acute distress. The neck is supple. The JVD is 5 cm above the mid right atrium. There are no carotid or subclavian bruits. The lungs are resonant to percussion and clear to auscultation. On cardiac examination, the PMI is not palpable, but the heart is not enlarged percussion. The rate is regular. S1 and S2 are normal. There is no S3 or S4. There are no murmurs. Abdominal examination is notable for obesity. There are no palpable masses and no hepatomegaly. The aorta is not palpable. Extremities are symmetric. There is no peripheral edema. There are 2+ bilateral femoral, dp and pt pulses. DATA: His electrocardiogram today shows sinus rhythm, evidence of a prior inferior myocardial infarction, and no significant ST-T wave abnormalities. Compared to the tracing of September 18, 2015, there has beenno diagnostic change. Results for JESSIKA CHRISTIE ( ) as of 09/27/2016 09:31 Ref. Range 09/27/2016 07:26 Sodium Latest Ref Range: 135 - 145 mmol/L 138 Potassium Latest Ref Range: 3.5 - 5.0 mmol/L 4.6 Chloride Latest Ref Range: 98 - 107 mmol/L 101 CO2 Latest Ref Range: 22 - 31 mmol/L 23 Anion Gap Latest Ref Range: 5 - 15 mmol/L 14 BUN Latest Ref Range: 10 - 20 mg/dL 20 Creatinine Latest Ref Range: 0.80 - 1.50 mg/dL 1.03 Estimated GFR Latest Ref Range: >=60 >60 Glucose Lvl Latest Ref Range: 65 - 199 mg/dL 118 Calcium Latest Ref Range: 8.5 - 10.5 mg/dL 9.2 Chol, Total Latest Ref Range: <=239 mg/dL 215 HDL Latest Ref Range: >=40 mg/dL 46 Chol/HDL Ratio Latest Units: ratio 4.7 Triglycerides Latest Ref Range: <=199 mg/dL 331 (H) LDL Cholesterol Latest Ref Range: <=190 mg/dL 103 Lipid Interpretation Unknown See Note ASSESSMENT: This patient has the following problems relevant to this visit: 1) Coronary artery disease, status post inferior myocardial infarction; 2) dyslipidemia; 3) hypertension. He is asymptomatic for angina. I have advised him to continue risk factor modification, continue to exercise, and encouraged caloricrestriction for weight weight reduction.His lipid profile is abnormal, with notably elevated triglycerides. He has not been taking his atorvastatin. He also consumes a diet enriched with carbohydrate. I have refilled his prescription for atorvastatin and encouraged him to markedly reduce his carbohydrate intake. His blood pressure is within acceptable limits. I've made no changes in his current medica l regimen. PLAN: He will return to see me in 1 year, but I would be happy to see him sooner if any new symptoms develop or if he has any concerns. documented in this encounter Plan of Treatment Upcoming Encounters Date Type Specialty Care Team Description 11/24/2021 Office Visit Cardiology Tyesha Guzman MD [facility] [place] [address] Sam Lord MD [facility] [place] [address] Scheduled Orders Name Type Priority Associated Diagnoses Order S chedule EKG 12 Lead ECG Routine Healthcare maintenance Order ed: 09/20/2016 documented as of this encounter Procedures Procedure Name Priority Date/Time Associated Diagnosis Comme nts EKG 12-LEAD Routine 09/27/2016 9:00 AM Atherosclerosis of Res ults for this EDT [place] coronary artery proce dure are in of [place] heart without the results angina pectoris section. documented in this encounter Results EKG 12 Lead (09/27/2016 9:00 AM EDT) Component Value Ref Range Test Analysis Performed Pathologis t Method Time At Signature Ventricular rate 67 BPM MUSE SYSTEM Atrial Rate 67 BPM MUSE SYSTEM P-R Interval 188 ms MUSE SYSTEM QRS Duration 96 ms MUSE SYSTEM Q-T Interval 424 ms MUSE SYSTEM QTC Calculated 448 ms MUSE SYSTEM (Bezet) Calculated P [place] 43 degrees MUSE SYSTEM Calculated R [place] -8 degrees MUSE SYSTEM Calculated T [place] 5 degrees MUSE SYSTEM INTERPRETATION Normal sinus rhythm MUSE SYSTEM Inferior infarct (cited on or before 18-SEP-2015) Abnormal ECG When compared with ECG of 18-SEP-2015 09:41, T wave inversion less evident in Inferior leads I personally reviewed the tracing and edited the fellows int erpretation Confirmed by fellow Pancho Glaser ([id number]) on 09/27/2016 1: 56:52 PM Confirmed by MD Hortencia, Valdez Hernandez ([id number]) on 09/27/2016 3:43: 56 PM Specimen Anatomical Collection Method Collection Time Receive d Time (Source) Location / / Volume Laterality 09/27/2016 9:00 AM 7 3:43 EDT PM EDT Wilbur Jones MD ECG ORDERABLES Performing Organization Address City/State/ZIP Code Phon e Number MUSE SYSTEM Basic Metabolic Panel (non-fasting) (09/27/2016 7:26 AM EDT) P athologist Signature Glucose Lvl 118 65 - 199 [facility] mg/dL [facility] Comment: Diabetes: >=200 mg/dL plus symp toms BUN 20 10 - 20 mg/dL [facility] Creatinine 1.03 0.80 - 1.50 mg/dL [facility] Comment: Please note that the pediatric reference intervals supplied above were not validated at [facility]. Results from pediatri c patients should be interpreted in conjunction to the patient's age, height and muscle mass. Sodium 138 135 - 145 mmol/L [facility] Potassium 4.6 3.5 - 5.0 mmol/L [facility] Comment: Please note: ??Patients with WBC >100,00 0 may have falsely elevated Potassium levels. ??For accurate Potassium quantif ication in these patients send serum separator tube (gold top) for subsequent determinations. ??Contact the Clinical Chemistry Laboratory if there are any qu estions. Chloride 101 98 - 107 mmol/L [facility] CO2 23 22 - 31 mmol/L [facility] Anion Gap 14 5 - 15 mmol/L [facility] Calcium 9.2 8.5 - 10.5 mg/dL [facility] Estimated GFR >60 >=60 [facility] Comment: This estimated GFR (eGFR) [...] the following links into your internet browser. [email or web address] Specimen Anatomical Collection Method Collection Time Receive d Time (Source) Location / / Volume Laterality Blood specimen 09/27/2016 7:26 AM 017 7:31 (specimen) EDT AM EDT Resulting Agency Comment Spec In Lab Wilbur Jones MD CHEMISTRY ORDERABLES Performing Organization Address City/State/[place] [address] (ABNORMAL) Lipid Panel (09/27/2016 7:26 AM EDT) [facility] gist Method Time Signature Chol, Total 215 <=239 [place] mg/dL [facility] Triglycerides 331 (H) <=199 [place] mg/dL [facility] HDL 46 >=40 [place] mg/dL [facility] LDL Cholesterol 103 <=190 [place] mg/dL [facility] Chol/HDL Ratio 4.7 ratio [facility] Lipid See Note [place] Interpretation [facility] Comment: Lipid management should be guided by a p atient? s ASCVD risk, goals and preferences. ACC/AHA Guidelines recommend high intens ity statin if clinical ASCVD or LDL greater than or equal to 190 mg/dL. [email or web address] Adults aged 40-75 with LDL 70-189 mg/dL should have their 10 year ASCVD risk estimated with the ACC/AHA ASCVD risk es timator http://tools.acc.org/WTKIK-Wizm-Gxycvyan r/ Statin should be discussed if risk [...] Resulting Agency Comment Spec In Lab Wilbur Serna Robert MD CHEMISTRY ORDERABLES Performing Organization Address City/State/[place] [address] documented in this encounter Visit Diagnoses Diagnosis Healthcare maintenance Routine general medical examination at a health care facility Atherosclerosis of [place] coronary arter y of [place] heart without angina pectoris Lipid disorder Unspecified disorder of lipoid metabolis m Hypertension, essential, benign Essential hypertension, benign documented in this encounter Care Teams Diesel Crane Operator Relationship Specialty Start Date End Date Louie Gill DO PCP - General 01/16/[address] [place] [address] documented as of this encounter
--- OUTSIDE RECORDS SUMMARY | 2021-11-02 13:35 | XMS_ITS | Encounter Summary ---
:1955 Author Organization [facility] [place] [address] Care Team Providers Name Role Phone Louie Gill DO Primary Care Provider Encounter Details Date Type Department Care Team Description 11/29/2017 Telephone Cardiology at [facility] Ashley Arce, [place] [address] Social History Tobacco Use Types Packs/Day [...] this encounter Miscellaneous Notes Telephone Encounter - Ashley Arce RN - 11/29/2017 3:13 PM EDT Mikala from [facility] doctor's office (unclear which doctor in message) requesting cardiac clearance for patient to be scheduled for a colonoscopy and also if he should stop his ASA before the procedure. Patient was last seen 11/21/17. Please advise. Thank you, Ashley Arce athletics director Cardiovascular Clinic General Team-Bladimir documented in this encounter Plan of Treatment Upcoming Encounters Date Type Specialty Care Team Description 11/24/2021 Office Visit Cardiology Tyesha Guzman MD [facility] [address] CARDIOLOGY [place], [place] [id number] Sam Lord MD [facility] [place] [address] documented as of this encounter Visit Diagnoses Not on filedocumented in this encounter Care Teams Multimedia Author Relationship Specialty Start Date End Date Louie Gill DO PCP - General 01/16/[address] [place] [address] documented as of this encounter
--- OUTSIDE RECORDS SUMMARY | 2021-11-02 13:35 | XMS_ITS | Encounter Summary ---
:1955 Author Organization [facility] [place] [address] Care Team Providers Name Role Phone Louie Gill DO Primary Care Provider Encounter Details Date Type Department Care Team Description 01/26/2012 Surgery Gastroenterology at [facility] Rachna Tracy, COLONOSCOPY FLEXIBLE, [facility] Giles marie MD WITH BX (WR[address]U [address]) [place] [address] [facility] [phone] GASTROENTEROLOGY DEPT. [place], [place] [address] Social History Tobacco Use Types Packs/Day Years Used Date Never Smoker Smokeless Tobacco: Never Used Alcohol Use Standard Drinks/Week Comments Yes 1 (1 standard drink = 0.6 oz pure alcoho l) Sex Assigned at Date Recorded Not on file documented as of this encounter Last Filed Vital Signs Vital Sign Reading Time Taken Comments Blood Pressure 133/82 01/26/2012 4:54 PM EST Pulse 68 01/26/2012 4:54 PM EST Temperature 36.3 ??C (97.3 ??F) 01/26/2012 3:19 PM EST Respiratory Rate 14 01/26/2012 4:54 PM EST Oxygen Saturation 99% 01/26/2012 4:54 PM EST Inhaled Oxygen Concentration - - [...] you need to be checked. Monday-Monday Clinic [phone] 8a-5p Same Day Endo [phone] 7a-8p Otherwise contact [phone] and ask to speak to the computer networker interpersonal communications professor Follow up care is a ribeiro part [...] (NASONEX) 50 0 10/21/2005 0 09/08/2015 mcg/Actuation [place] hydrochlorothiazide 0 07/27/200509/07 (HYDRODIURIL) 25 mg tablet [...] mg tablet ??? Mometasone (NASONEX) 50 mcg/Actuation [place] Allergies: Allergies Allergen Reactions ??? 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 No smoking. Rare etoh Family History: [...] 11/24/2021 Office Visit Cardiology Tyesha Guzman MD [facility] [address] CARDIOLOGY [place], [place] [phone] Sam Lord MD [facility] [address] documented as of this encounter Procedures Procedure [...] Surgical Pathology Report (01/26/2012 5:58 PM EST) [facility] Method Time Signature Surgical CERNER Pathology ? [facility] Report ? Provider: ?? RACHNA TRACY ?Pt. Name: ?? ELISE LEONARD, JESSIKA Serna ? Acc #: ?[id number] ?Pt. MRN: ?[id number] ? Col Date: ?? 01/26/20 12 ?/Sex: [...] MD PATHOLOGY/CYTOLOGY ORDERABLE S Performing Organization Address City/[facility]/ZIP Code Phon e Number [address] [facility] Specimen to Pathology (surgical or derm) (01/26/2012 4:59 PM EST) Specimen Anatomical Collection Method Collection Time Receive d Time (Source) Location / / Volume Laterality AP Specimen 01/26/2012 4:59 PM 201 2 4:59 EST PM EST Narrative CERNER MILLENNIUM - 01/26/2012 4:[address] Specimen requisition ordered. ??Separate Pathology report to follow Rachna Tracy MD PATHOLOGY/CYTOLOGY ORDERABLE S Performing Organization Address City/[facility] Code Phon e Number [address] [facility] Specimen to Pathology (surgical or derm) (01/26/2012 4:59 PM EST) Specimen Anatomical Collection Method Collection Time Receive d Time (Source) Location / / Volume Laterality AP Specimen 01/26/2012 4:59 PM 2 4:59 EST PM EST Narrative CERANTONIETTA MILLENNIUM - 01/26/2012 4:[address] Specimen requisition ordered. ??Separate Pathology report to follow Rachna Tracy MD PATHOLOGY/CYTOLOGY ORDERABLE S Performing Organization Address [facility]/State/[place] [address] CERANTONIETTA MILLENNIUM COLONOSCOPY (01/26/2012 4:14 PM EST) [facility] Method Time Signature COLONOSCOPY [facility]ATION Endoscopy Patient Name: Jessika Keith ? Procedure Date: 01/26/2012 4:14 PM ? N: [id number] ? Date of : 1955 ? Age: 56 ? Order #: [id number] ? Procedure: ? Colonoscopy Indications: ? High risk colon cancer surveillance : ? Personal history of colonic p olyps Providers: ? Rachna Tracy MD, Amarilys holt, ? RN, Liana Chapman, Sewer Cleaner Referring : ?Louie Gill, DO Medicines: ? Midazolam 3 [...] MAR Action Action Date Dose Rate Site fentaNYL 50mcg/mL injection Given 01/26/2012 4:36 PM EST 50 mcg Right Arm ONCE PRN, Starting on Bhakti 01/26/12 at 1632, Until Bhakti 01/26/12 at 1941, Pain, Intra-Operative (Intra-Procedure), Routine Given 01/26/2012 4:32 PM EST 100 mcg midazolam (VERSED) injection Given 01/26/2012 4:36 PM EST 1 mg Right Arm ONCE PRN, Starting on Bhakti 01/26/12 at 1632, Until Bhakti 01/26/12 at 1941, Sleep, Intra-Operative (Intra-Procedure), Routine Given 01/26/2012 4:32 PM EST 2 mg Right Arm sodium chloride 0.9% infusion New Bag 01/26/2012 3:35 PM EST 50 mL/hr 50 mL/hr 50 mL/hr, Intravenous, CONTINUOUS, Starting on Bhakti 01/26/12 at 1530, Until Bhakti 01/26/12 at 1941, Endoscopy (Day of Procedure) documented in this encounter Active and Recently Administered Medications Times are shown in EST. Continuous Medication Order 01/24/2012 01/25/2012 01/26/2012 sodium chloride 0.9% infusion (CANCELED) 1535 (New Bag - Provider: Vero Walsh, RN) 50 mL/hr, at 50 mL/hr, Intravenous, CONT INUOUS, Starting Bhakti 01/26/12 at 1530, Until Bhakti 01/26/12 at 1941, Endo (Day of Procedure) PRN Medication Order 01/24/2012 01/25/2012 01/26/2012 fentaNYL 50mcg/mL injection (CANCELED) 1632 (Given - Provider: Amarilys Malcolm RN - Comment: starting sedaation)1636 (Given [...] Routine documented in this encounter Care Teams Tabulating Supervisor Relationship Specialty Start Date End Date Louie Gill DO PCP - General 01/16/[address] [place] [address] documented as of this encounter
--- OUTSIDE RECORDS SUMMARY | 2021-11-02 13:35 | XMS_ITS | Encounter Summary ---
:1955 Author Organization [facility] Address [address] [place] [address] Care Team Providers Name Role Phone JairoLouie davies Primary Care Provider Encounter Details Date Type Department Care Team Description 11/21/2017 Office Visit Cardiology at [facility] [place] Wilbur Jones, Atherosclerosis of [place] co ronary artery of [place] heart without angina pectoris; [facility] Hypertension, essential, benign; Drive [facility] Lipid disorder [facility] [id number] CARDIOLOGY DEPT [phone] [place] [id number] Social History Tobacco Use Types Packs/Day Years [...] Sign Reading Time Taken Comments Blood Pressure 138/77 11/21/2017 9:03 AM EDT Pulse 64 11/21/2017 9:03 AM EDT Temperature - - Respiratory Rate - - Oxygen Saturation 97% 11/21/2017 9:03 AM EDT Inhaled Oxygen Concentration - - Weight 119.7 kg (264 lb) 11/21/2017 9:03 AM EDT Height 180.3 cm (5' 11) 11/21/2017 9:03 AM EDT Body Mass Index 36.82 11/21/2017 9:03 AM EDT documented in this encounter Progress Notes Wilbur Jones MD - 11/21/2017 9:00 AM EDT Images from the original note were not included. changes [facility] [place] [address] [id number] Chu Keith [id number] 11/21/2017 REFERRING PROVIDER: Louie Gill PROBLEM LIST Patient Active Problem List Diagnosis ??? Hypertension, essential, benign ??? Atherosclerotic heart disease of [place] coronary artery without angina pectoris ??? Lipid disorder ??? Seborrheic keratosis HISTORY OF PRESENT ILLNESS: Mr. Keith??is is being seen for a follow-up cardiovascular examination. I last saw him approximately 14 monts ago. He has established coronary artery disease. He had a myocardial infarction during the summer of 2015 while vacationing in [place]. He underwent cardiac catheterization in [facility] which demonstrated significant stenoses in the right coronary artery and diagonal branch of the LAD. 3bare metal stents were placed in the right coronary artery and another BMS was placed in the diagonal branch. Report of an echocardiogram from that hospitalization indicated inferior hypokinesis and ejection fraction of approximately 60%. ?? 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 ?? His risk factors include hypertension and dyslipidemia. He does not smoke cigarettes. He is not aware of diabetes (though today's laboratory work shows glucose intolerance). He has a family history of coronary artery disease. He has no symptoms of leg claudication, and no symptoms suggestive of cerebrovascular ischemia. ?? PAST MEDICAL HISTORY: Past Medical History: Diagnosis [...] Outpatient Prescriptions Medication Sig Dispense Refill ??? tamsulosin (FLOMAX) 0.4 mg Capsule Take 0.4 mg by mouth daily. 0 ??? BETA-CAROTENE,A,-VITS C,E/MINS (EYE HEALTH ORAL) [...] and Penicillins PHYSICAL EXAMINATION: Vital Signs: BP 138/77 Pulse 64 Ht 180.3 cm (5' 11) Wt 119.7 kg (264 lb) SpO2 97% BMI 36.82 kg/m2 Exam Details: The patient is oriented [...] 2+ bilateral femoral, dp and pt pulses. ?? DATA: His electrocardiogram today shows sinus rhythm, evidence of a prior inferior myocardial infarction, and no significant ST-T wave abnormalities. Compared to the tracing of September 27 there has been no diagnostic change. ASSESSMENT: This patient has the following problems relevant to this visit: 1) Coronary artery disease, status post inferior myocardial infarction; 2) dyslipidemia; 3) hypertension. He is asymptomatic for angina. I have advised him to continue risk factor modification, continue to exercise, and encouraged caloricrestriction for weight reduction. I've made no changes in his current medical regimen. I have asked him to obtain a copy of his recent blood work, presumably which included a lipid profile. ?? PLAN: He will return to see me in 1 year, but I would be happy to see him sooner if any new symptoms develop or if he has any concerns. documented in this encounter Plan of Treatment Upcoming Encounters Date Type Specialty Care Team Description 11/24/2021 Office Visit Cardiology Tyesha Guzman MD [facility] [place] [address] Sam Lord MD [facility] [place] [address] documented as of this encounter Procedures Procedure Name Priority Date/Time Associated Diagnosis Comme nts EKG 12-LEAD Routine 11/21/2017 9:22 AM Atherosclerosis of Res ults for this EDT [place] coronary artery proce dure are in of [place] heart without the results angina pectoris section. documented in this encounter Results EKG 12 Lead (11/21/2017 9:22 AM EDT) Component Value Ref Range Test Analysis Performed Pathologis t Method Time At Signature Ventricular rate 62 BPM MUSE SYSTEM Atrial Rate 62 BPM MUSE SYSTEM P-R Interval 190 ms MUSE SYSTEM QRS Duration 94 ms MUSE SYSTEM Q-T Interval 428 ms MUSE SYSTEM QTC Calculated 434 ms MUSE SYSTEM (Bezet) Calculated P Mellen 41 degrees MUSE SYSTEM Calculated T Mellen 7 degrees MUSE SYSTEM INTERPRETATION Normal sinus rhythm MUSE SYSTEM Inferior infarct (cited on or before 18-SEP-2015) Abnormal ECG When compared with ECG of 27-SEP-2016 09:00, No significant change was found I personally reviewed the tracing and edited the fellows int erpretation Confirmed by fellow Brianna Mhoan ([id number]) on 8 3:43:28 PM Confirmed by MD CHAD, TASHA ([id number]) on 11/22/2017 7:46:59 AM Specimen Anatomical Collection Method Collection Time Receive d Time (Source) Location / / Volume Laterality 11/21/2017 9:22 AM 8 7:46 EDT AM EDT Wilbur Jones MD ECG ORDERABLES Performing Organization Address City/State/ZIP Code Phon e Number MUSE SYSTEM documented in this encounter Visit Diagnoses Diagnosis Atherosclerosis of [place] coronary arter y of [place] heart without angina pectoris Hypertension, essential, benign Essential hypertension, benign Lipid disorder Unspecified disorder of lipoid metabolis m documented in this encounter Care Teams Senior Android Software Engineer Relationship Specialty Start Date End Date Louie Gill DO PCP - General 01/16/[address] [place] [address] documented as of this encounter
== END 2021-11-02 13:30 | disposition home or self-care (01) ==
LOC: LBO 13:33
PROVIDERS: PCP Nurse Practitioner Family; Visit Provider Nurse Practitioner Family
DX: I10 Essential (primary) hypertension (principal)
CPT/HCPCS: 36415; 82565; 84132

== ENCOUNTER 2022-08-17 16:25 | Emergency (ER) | payer MEDICARE, SELFPAY ==
[2022-08-17 16:30] VITALS: BP 176/84; PULSE 74; RESP 20; TEMP 36.8; O2SAT 99
--- NOTE | 2022-08-17 16:41 | DI.RAD_ITS ---
Exam(s) XR HAND LT COMPLETE EXAM: XR HAND LT COMPLETE CLINICAL HISTORY: hand vs saw. TECHNIQUE: 2D digital imaging was performed. Three views. COMPARISON: CR RIGHT WRIST COMPLETE from 04/21/2015 FINDINGS: BONES: No acute fracture is present. No bony destructive lesion is seen. Degenerative changes great est at the distal interphalangeal joint of the 4th finger. JOINTS: No dislocation present. SOFT TISSUE: Normal. No foreign body. IMPRESSION: No acute fracture. No foreign body. DATA REPOSITORY: RADIATION DOSE DELIVERED:
--- NOTE | 2022-08-17 17:19 | DI.VRAD_ITS ---
PROCEDURE INFORMATION: Exam: XR Left Hand Exam date and time: 08/17/2022 5:09 PM Age: 67 years old Clinical indication: Other: Hand vs saw TECHNIQUE: Imaging protocol: Radiologic exam of the left hand. Views: 3 or more views. COMPARISON: No relevant prior studies available. FINDINGS: Bones/joints: There are degenerative changes of the D IP joint of the 4th digit. There appears to be some soft tissue injury of the ulnar aspect of the distal tuft of the 4th digit. This may be artifact from rotation. No acute fracture. Soft tissues: See Bones/joints finding. IMPRESSION: Possible soft tissue injury 4th digit. Clinical correlation requested. No evidence for bony injury. Dictated and Authenticated by: Bree Leger MD. Ordering:DANE Worrell MD
--- NOTE | 2022-08-17 17:53 | W.ED.GENAD ---
Discharge Plan Disposition Patient Disposition: Home Discharge Details Clinical Impression: Extensor tendon laceration of hand with open wound Primary Care Provider: Callum Alicia ED Provider: Gm Antonio Home Meds and New Rx's Prescriptions: New sulfamethoxazole-trimethoprim [Bactrim DS] 800-160 mg tablet 1 tab PO BID Qty: 14 0RF Rx Instructions: Please hold your LISINOPRIL while taking this Anitbiotic. Held lisinopril 20 mg tablet 20 mg PO DAILY Qty: 90 3RF Hold Instructions: Resume on 08/23/22. No Action multivitamin with minerals tablet extended release 1 tab PO DAILY aspirin 81 mg tablet,delayed release (DR/EC) 81 mg PO DAILY tetanus-diphtheria toxoids-Td 2-2 Lf unit/0.5 mL suspension 0.5 ml IM ONCE Qty: 0.5 0RF metformin 500 mg tablet 500 mg PO DAILY Qty: 90 3RF clobetasol [Temovate] 30 GM cream 30 gm Topical bid PRN Qty: 1 0RF nitroglycerin 0.4 mg tablet, sublingual 0.4 mg Sublingual every 3 min x 2 MDD 6 tabs Qty: 25 3RF Patient Comments: pt not taking carvedilol 6.25 mg tablet 6.25 mg PO BID Qty: 180 3RF Rx Instructions: give with food (meal/snack) atorvastatin 40 mg tablet 40 mg PO QPM Qty: 90 3RF Discharge Instructions Instructions: Tendon Laceration (ED) Additional Instructions: As discussed with the [facility] hand clinic will call you for follow-up appointment this week. If you do not hear from them by midday tomorrow please call the case management service at our hospital to assist you. If you are not scheduled for clinic follow-up till next week please come back to the emergency department in 48 to 72 hours for repeat wound check. Medical Decision Making Will irrigate wound extensively and cover with antibiotics. Loose closure of the wound and consultation with orthopedic hand surgery. Please see course above HPI General Date/Time Provider Initiated Documentation: 08/17/22 16:41. HPI Narrative: Patient was working with a radial saw and it skipped and impacted his left hand. Bleeding was controlled at the scene with a compressive bandage and the patient presented the emergency department for an evaluation. He does not complain of numbness distal to the site of the injury. He does not take blood thinners. He had no other injuries. His last tetanus vaccination with his knee in 2009. Patient has multiple drug allergies noted in the chart. Related Data Home Medications Medication Instructions Recorded Confirmed clobetasol 0.05 % topical cream 30 gm topical bid PRN ##1 04/04/17 05/09/22 (Temovate) multivitamin with minerals 1 tab PO DAILY 01/02/18 05/09/22 aspirin 81 mg tablet,delayed 81 mg PO DAILY 10/12/18 08/17/22 release nitroglycerin 0.4 mg sublingual 0.4 mg sublingual every 3 min x 2 05/28/21 08/17/22 tablet ##25 lisinopril 20 mg tablet 20 mg PO DAILY #90 tab-caps 02/23/22 08/17/22 metformin 500 mg tablet 500 mg PO DAILY #90 tabs 02/23/22 08/17/22 tetanus-diphtheria toxoids-Td 2 Lf 0.5 ml IM ONCE #0.5 mL 05/09/22 05/09/22 unit-2 Lf unit/0.5 mL IM suspension carvedilol 6.25 mg tablet 6.25 mg PO BID #180 tabs 07/18/22 08/17/22 atorvastatin 40 mg tablet 40 mg PO QPM #90 tabs 07/21/22 08/17/22 sulfamethoxazole 800 1 tab PO BID #14 tabs 08/17/22 mg-trimethoprim 160 mg tablet (Bactrim DS) Previous Rx's Medication Instructions Recorded clobetasol 0.05 % topical cream 30 gm topical bid PRN ##1 04/04/17 (Temovate) nitroglycerin 0.4 mg sublingual 0.4 mg sublingual every 3 min x 2 05/28/21 tablet ##25 lisinopril 20 mg tablet 20 mg PO DAILY #90 tab-caps 02/23/22 metformin 500 mg tablet 500 mg PO DAILY #90 tabs 02/23/22 tetanus-diphtheria toxoids-Td 2 Lf 0.5 ml IM ONCE #0.5 mL 05/09/22 unit-2 Lf unit/0.5 mL IM suspension carvedilol 6.25 mg tablet 6.25 mg PO BID #180 tabs 07/18/22 atorvastatin 40 mg tablet 40 mg PO QPM #90 tabs 07/21/22 sulfamethoxazole 800 1 tab PO BID #14 tabs 08/17/22 mg-trimethoprim 160 mg tablet (Bactrim DS) Allergies Allergy/AdvReac Type Severity Reaction Status Date / Time cefadroxil Allergy Intermediate kidney Verified 08/17/22 16:38 failure latex Allergy Intermediate skin rash Verified 08/17/22 16:38 Penicillins Allergy Intermediate Anaphylaxsi Verified 08/17/22 16:38 s amoxicillin trihydrate Allergy Unknown Verified 08/17/22 16:38 [From Augmentin] cephalexin monohydrate Allergy Unknown Verified 08/17/22 16:38 [From Keflex] clindamycin Allergy Unknown Verified 08/17/22 16:38 clindamycin HCl Allergy Unknown Verified 08/17/22 16:38 [From Cleocin] clindamycin palmitate HCl Allergy Unknown Verified 08/17/22 16:38 [From Cleocin] clindamycin phosphate Allergy Unknown Verified 08/17/22 16:38 [From Cleocin] potassium clavulanate Allergy Unknown Verified 08/17/22 16:38 [From Augmentin] General Stated Complaint: Laceration PENNIE: 3 Review of Systems Narrative: MUSC: Muscle cramping pain in the left forearm, SKIN: Laceration as described above NEURO: No numbness distal to the site of injury. PFSH All Active Problems Extensor tendon laceration of hand with open wound (Acute) Bilateral hip pain (Acute) Prediabetes (Acute) BPH loc w urin obs/LUTS (Acute) Tubular adenoma of colon (Acute 01/12/01) 2003 Peripheral polyneuropathy (Acute 11/10/15) feet Hypertension (Acute) Hyperlipidemia (Acute) Family history of GI malignancy (Acute) mother-colon Contact dermatitis (Acute 04/04/17) Medical History ID, acute, non ST segment elevation (08/19/15) 1 stent LAD branch, 3 stents RCA. All bare metal stents. [facility] 08/09/15 ST elevation myocardial infarction (STEMI) (08/19/15) 4 stents. July 2015 [facility] History FRACTURED WRIST History of hernia repair Nasal septoplasty ORAL [place]ISTULA REPAIR Family History Mother , 88 Essential hypertension Heart disease Colon cancer Father , 69 Essential hypertension COPD (chronic obstructive pulmonary disease) CAD (coronary artery disease) Heart disease Sister , 69 Essential hypertension Heart disease Maternal Grandfather Stroke Social History Smoking/Tobacco Use Status: Never Second Hand Exposure: Yes Smoking risk assessment performed?: Yes Alcohol Intake: current Alcohol Intake frequency: a few times a month Alcohol type: beer Drug use: Never Substance use type: does not use Caregiver/Support person: No Household members: spouse Housing: house Communication Needs: None Do you need help understanding health information?: Never Pets and animals: No Sexually active: Yes Do you think of yourself as: straight/heterosexual Current gender identity: male What is your relationship status?: How often do you talk on the phone with friends or family?: three or more times per week How often do you get together with friends or relatives?: once per week How often do you attend methodist or hindu services?: 4 or more times per year Do you belong to any clubs or organized social groups?: yes Panel score (0-1 are the most socially isolated patients): 4 What type of physical activity do you participate in: other Details: PT Duration: 45-60 minutes/day Frequency: 1-2 times per week Patito/Amish: Episcopalian Special patito needs: No Seatbelt use: always Helmet use: Yes Helmet use: always Drive intox or ride w/intox dedicated regional driver: No Do you feel safe at home: Yes Do you feel safe in your relationship?: Yes Exam Skin Other: Relatively clean linear laceration of the left small hand near the base of the thumb. No obvious exposed bone or tendon. No gross contamination. Neuro Motor: strength abnormal (Complete extensor deficit of the left thumb. Opposition is intact.) Sensory Exam: no sensory deficits noted Extrem Other: Good perfusion distal to the site of injury. Capillary refill intact. Course Reevaluation(s) Time: 17:53 Reevaluation: Patient with extensor mechanism deficit, have contacted orthopedics who will evaluate patient to see if they are appropriate for management here at our facility versus requiring a tertiary care facility referral. Boostrix has been ordered. Time: 18:02 Reevaluation #2: Orthopedics at our facility recommends referral to tertiary care hand specialist will contact [facility]. Have loosely approximated the wound after extensive irrigation. Additional Reevaluation(s): Discussed case with orthopedics at [facility] who agrees to see the patient in clinic this week and scheduled for surgery. Recommend to the patient that should he not have an evaluation in the next 48 to 72 hours that he should come back to the emergency department for a wound check. Given his allergies to both cephalosporins and clindamycin and Bactrim was the only viable option and he was administered a dose here and then sent home with a prescription. Vital Signs Vital signs: Vital Signs Temperature 36.8 C 08/17/22 16:30 Pulse 74 08/17/22 16:30 Respiratory Rate 20 08/17/22 16:30 Blood Pressure 176/84 H 08/17/22 16:30 Pulse Oximetry 99 08/17/22 16:30 Temperature 36.8 C 08/17/22 16:30 Temperature Source Oral 08/17/22 16:30 Pulse 74 08/17/22 16:30 Respiratory Rate 20 08/17/22 16:30 Respiratory Effort Normal 08/17/22 17:34 Blood Pressure 176/84 H 08/17/22 16:30 Blood Pressure Position Sitting 08/17/22 16:30 Pulse Oximetry 99 08/17/22 16:30 Oxygen Delivery Method Room Air 08/17/22 16:30 Oxygen Flow Rate 0 08/17/22 16:30 Pain Level 8 08/17/22 16:30 Procedures Orthopedic Splinting/Casting Injury #1: Side: left Upper Extremity Injury Location: hand Upper Extremity Immobilizer: volar splint (4 inch fiberglass, neutral position)
[2022-08-17] MEDS: Sulfameth/Trimeth DS TAB 1 TAB PO (19:37)
--- NOTE | 2022-08-18 10:27 | NUR.NOTE ---
Nursing Note: Accessed pt chart to determine the referral needed for [facility]. He has not heard from [facility] and will refer the call to Care Management.
--- NOTE | 2022-08-18 11:17 | PDOC.CMACT ---
Date of service: 08/18/22 Time of Service: 11:17 Care Management Activity Note Activity Note Text Activity Note Text: Chu is seen in the ED for a tendon laceration of his hand with an open wound. At the request of ED provider, CM coordinates a referral to [facility] Hand Specialist (Orthopedics) to assist patient in obtaining an urgent appointment for further evaluation and treatment.
== END 2022-08-17 19:43 | disposition home or self-care (01) ==
PROVIDERS: Emergency Provider Emergency Medicine; PCP Nurse Practitioner Family
DX: S66.822A Laceration of other specified muscles, fascia and tendons at wrist and hand level, left hand, initial encounter (principal); W29.3XXA Contact with powered garden and outdoor hand tools and machinery, initial encounter
CPT/HCPCS: 29125; 90471; 99284; 73130

== ENCOUNTER 2022-09-19 02:48 | Outpatient (CLI) | payer MEDICARE, SELFPAY ==
[2022-09-19 09:59] LABS: CREATININE 1.1 mg/dL (0.70-1.30); Calculated LDL 43 mg/dL (<100); Cholesterol 117 mg/dL (<200); Estimated GFR 73.12 (mL/min/1.73m2); HDL Cholesterol 46 mg/dL (40-60); Triglyceride 142 mg/dL (<150)
== END 2022-09-19 02:49 | disposition home or self-care (01) ==
LOC: LBO 02:48
PROVIDERS: PCP Nurse Practitioner Family; Visit Provider Nurse Practitioner Family
DX: E78.5 Hyperlipidemia, unspecified (principal); I10 Essential (primary) hypertension
CPT/HCPCS: 36415; 80061; 82565; 84132

== ENCOUNTER → 2023-03-15 11:15 | Outpatient (BNVA) | payer MEDICARE, SELFPAY | PROVIDERS: PCP Nurse Practitioner Family; Referring Provider Nurse Practitioner Family; Visit Provider Podiatrist | CPT/HCPCS: 11720; 11720-NC ==

== ENCOUNTER 2023-04-27 03:08 | Outpatient (CLI) | payer MEDICARE, SELFPAY ==
[2023-04-27 12:27] LABS: CREATININE 1.1 mg/dL (0.70-1.30); Calculated LDL 60 mg/dL (<100); Cholesterol 137 mg/dL (<200); Estimated GFR 73.12 (mL/min/1.73m2); HDL Cholesterol 46 mg/dL (40-60); Potassium 4.5 mmol/L (3.5-5.1); Triglyceride 156 mg/dL (<150)
== END 2023-04-27 03:09 | disposition home or self-care (01) ==
LOC: LOS 03:08
PROVIDERS: PCP Nurse Practitioner Family; Visit Provider Nurse Practitioner Family
DX: Z13.6 Encounter for screening for cardiovascular disorders (principal); I10 Essential (primary) hypertension
CPT/HCPCS: 36415; 80061; 82565; 84132

== ENCOUNTER 2023-05-25 05:24 | Outpatient (CLI) | payer MEDICARE, SELFPAY | END 2023-05-25 05:25 | disposition home or self-care (01) | PROVIDERS: PCP Nurse Practitioner Family; Visit Provider Nurse Practitioner Family | DX: R35.1 Nocturia (principal); Z12.5 Encounter for screening for malignant neoplasm of prostate | CPT/HCPCS: 36415; 84153 ==

== ENCOUNTER 2023-08-18 15:31 | Outpatient (REF) | payer MEDICARE, SELFPAY ==
[2023-08-18 21:46] LABS: COMMENT (LAB VIEW ONLY) 224.23 mg/dL
[2023-08-18 21:59] LABS: Microalb ug/mg Crea 72.6 ug/mg Cr
== END 2023-08-18 15:32 | disposition home or self-care (01) ==
LOC: LBN 15:31
PROVIDERS: PCP Nurse Practitioner Family; Visit Provider Nurse Practitioner Family
DX: E11.9 Type 2 diabetes mellitus without complications (principal)
CPT/HCPCS: 82043; 82570

== ENCOUNTER → 2024-01-24 08:21 | Outpatient (BNVA) | payer MEDICARE, SELFPAY | PROVIDERS: PCP Nurse Practitioner Family; Referring Provider Nurse Practitioner Family; Visit Provider Podiatrist | DX: L60.3 Nail dystrophy (principal); B35.1 Tinea unguium; E11.42 Type 2 diabetes mellitus with diabetic polyneuropathy; R20.2 Paresthesia of skin | CPT/HCPCS: 11719; 11720 ==

== ENCOUNTER 2024-05-23 14:58 | Outpatient (CLI) | payer MEDICARE, SELFPAY ==
[2024-05-23 15:40] LABS: Calculated LDL 44 mg/dL (<100); Cholesterol 132 mg/dL (<200); HDL Cholesterol 49 mg/dL (>or=40); Triglyceride 196 mg/dL (<150)
[2024-05-23 16:52] LABS: Hemoglobin A1C 5.8 % (<5.7)
[2024-05-24 18:03] LABS: PSA, Screening 1.2 ng/mL (<=6.5)
== END 2024-05-23 14:59 | disposition home or self-care (01) ==
LOC: LBO 14:59
PROVIDERS: PCP Nurse Practitioner Family; Visit Provider Nurse Practitioner Family
DX: Z13.6 Encounter for screening for cardiovascular disorders (principal); Z12.5 Encounter for screening for malignant neoplasm of prostate; Z13.1 Encounter for screening for diabetes mellitus
CPT/HCPCS: 36415; 80061; 84153; 83036

== ENCOUNTER 2024-09-10 11:44 | Emergency (ER) | payer MEDICARE, SELFPAY ==
[2024-09-10 11:54] VITALS: BP 135/86; PULSE 80; RESP 16; TEMP 36.5; O2SAT 95
--- NOTE | 2024-09-10 12:00 | DI.RAD_ITS ---
Exam(s) XR HAND LT COMPLETE EXAM: XR HAND LT COMPLETE CLINICAL HISTORY: crush injury. TECHNIQUE: 2D digital imaging was performed. COMPARISON: CR,XR XR HAND LT COMPLETE from 08/17/2022 FINDINGS: 3 views Again noted is the previously described unifocal findings at the DIP joint of the 4th-ring finger. This has appearance of advanced chronic degenerative change at the DIP joint level. However, on the lateral image of today's study there is a suggestion of a possible subtle fracture at this level in the base of the distal phalanx which was not evident on the August 2022 images No other fractures identified. IMPRESSION: Fourth finger DIP joint and distal phalanx findings as described above. DATA REPOSITORY: RADIATION DOSE DELIVERED:
--- NOTE | 2024-09-10 12:08 | W.ED.GENAD ---
Discharge Plan Disposition Patient Disposition: Home Condition: Stable Discharge Details Clinical Impression: Crush injury of hand, Laceration of hand Primary Care Provider: Callum Alicia ED Provider: Jerilyn Mcgowan Home Meds and New Rx's Prescriptions: New doxycycline monohydrate 100 mg capsule 100 mg PO BID 5 Days Qty: 10 0RF No Action multivitamin with minerals tablet extended release 1 tab PO DAILY ketoconazole 2 % cream 1 applic topical DAILY 90 Days Qty: 60 3RF Rx Instructions: Apply to toenails once daily carvedilol 12.5 mg tablet 12.5 mg PO DAILY Patient Comments: TAKE 1 TABLET BY MOUTH TWICE DAILY WITH MEALS aspirin 81 mg tablet,delayed release (DR/EC) 81 mg PO DAILY nitroglycerin 0.4 mg tablet, sublingual 0.4 mg Sublingual every 3 min x 2 MDD 6 tabs Qty: 25 3RF Patient Comments: pt not taking clobetasol [Temovate] 30 GM cream 30 gm Topical bid PRN Qty: 1 0RF atorvastatin 40 mg tablet 40 mg PO QPM Qty: 90 3RF dulaglutide 4.5 mg/0.5 mL pen injector 4.5 mg subcut QWEEK Qty: 6 3RF lisinopril 30 mg tablet 30 mg PO DAILY Qty: 90 3RF Discharge Instructions Instructions: Laceration Repair With Stitches ED Additional Instructions: You were seen in the emergency department today for evaluation of a hand injury. You had an x-ray that showed no significant abnormalities, we discussed the potential small fracture in your fourth finger, which is unlikely to be related to this injury. You had numerous stitches placed, you have a significant amount of tissue loss and should continue to use antibiotic ointment, dressing changes twice a day, and Tylenol and ibuprofen for pain. The stitches need to come out in 7 to 10 days, and you can see your primary care provider or come back to the emergency department to have this done. Please take the doxycycline as a prophylactic antibiotic to prevent infection, you will take this twice a day for the next 5 days. Please follow-up with your primary care provider in the next few days to discuss this visit and any symptoms that change, worsen, or persist. Thank you for allowing us to be part of your care. HPI General Mode of arrival: ambulatory. Date/Time Provider Initiated Documentation: 09/10/24 12:03. Limitations to Documentation: no limitations. Information obtained by: patient and old records reviewed. HPI Narrative: This is a 69-year-old male patient with a past medical history significant for diabetes, hypertension and hyperlipidemia presenting for evaluation of a hand laceration. 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 He sustained a stellate laceration to the left hand. Patient reports that he is right-hand dominant, was in his normal state of health before the incident, and did not injure any other part of his body. Last tetanus shot 2 years ago. No medications for pain prior to arrival. Related Data Home Medications ?Medication ?Instructions ?Recorded ?Confirmed clobetasol 0.05 % topical cream 30 gm topical bid PRN ##1 04/04/17 09/10/24 (Temovate) multivitamin with minerals 1 tab PO DAILY 01/02/18 09/10/24 aspirin 81 mg tablet,delayed 81 mg PO DAILY 10/12/18 09/10/24 release ketoconazole 2 % topical cream 1 applic topical DAILY 3 months 12/12/22 09/10/24 #60 grams carvedilol 12.5 mg tablet 12.5 mg PO DAILY 12/11/23 09/10/24 atorvastatin 40 mg tablet 40 mg PO QPM #90 tabs 01/13/24 09/10/24 dulaglutide 4.5 mg/0.5 mL 4.5 mg (0.5 mL) subcut QWEEK #6 mL 04/04/24 09/10/24 subcutaneous pen injector nitroglycerin 0.4 mg sublingual 0.4 mg sublingual every 3 min x 2 05/22/24 09/10/24 tablet ##25 doxycycline monohydrate 100 mg 100 mg PO BID 5 days #10 caps 09/10/24 capsule lisinopril 30 mg tablet 30 mg PO DAILY #90 tab-caps 09/10/24 Previous Rx's ?Medication ?Instructions ?Recorded clobetasol 0.05 % topical cream 30 gm topical bid PRN ##1 04/04/17 (Temovate) ketoconazole 2 % topical cream 1 applic topical DAILY 3 months 12/12/22 #60 grams atorvastatin 40 mg tablet 40 mg PO QPM #90 tabs 01/13/24 dulaglutide 4.5 mg/0.5 mL 4.5 mg (0.5 mL) subcut QWEEK #6 mL 04/04/24 subcutaneous pen injector nitroglycerin 0.4 mg sublingual 0.4 mg sublingual every 3 min x 2 05/22/24 tablet ##25 doxycycline monohydrate 100 mg 100 mg PO BID 5 days #10 caps 09/10/24 capsule lisinopril 30 mg tablet 30 mg PO DAILY #90 tab-caps 09/10/24 Allergies Allergy/AdvReac Type Severity Reaction Status Date / Time cefadroxil Allergy Intermediate kidney Verified 09/10/24 11:58 failure latex Allergy Intermediate skin rash Verified 05/22/24 13:45 Penicillins Allergy Intermediate Anaphylaxsi Verified 09/10/24 11:58 s amoxicillin trihydrate (From Allergy Unknown Other (See Verified 09/10/24 11:58 Augmentin) Comment) cephalexin monohydrate (From Allergy Unknown Unknown. Verified 09/10/24 11:58 Keflex) -hb clindamycin Allergy Unknown Other (See Verified 09/10/24 11:58 Comment) clindamycin HCl (From Allergy Unknown Other (See Verified 09/10/24 11:58 Cleocin) Comment) clindamycin palmitate HCl Allergy Unknown Other (See Verified 05/22/24 13:45 (From Cleocin) Comment) clindamycin phosphate (From Allergy Unknown Other (See Verified 09/10/24 11:58 Cleocin) Comment) potassium clavulanate (From Allergy Unknown Other (See Verified 09/10/24 11:58 Augmentin) Comment) General Stated Complaint: Laceration PENNIE: 3 Exam Narrative Exam Narrative: Gen: Awake and alert, in no apparent distress HEENT: Non-icteric sclera Neck: Supple Lungs: No apparent respiratory distress, normal respiratory effort. CV: Appears well perfused Abdomen: Non-distended MSK: Moves 4 extremities without apparent limitation in ROM. The patient's left hand has a large stellate laceration overlying the dorsal aspect of the left hand, extensor tendons visible but without evidence of damage. He has some maceration of the skin edges, and has a large abrasion at the proximal aspect of the laceration where the skin has been entirely abraded away. The patient has full resisted flexion and extension of all digits, no sensory deficits, brisk capillary refill. Skin: Visualized skin without rashes, cyanosis. Neuro: Normal Gait, no obvious focal deficits or facial asymmetry. Speaks in full, clear sentences. Psych: Appropriate for situation. Course Vital Signs Vital signs: Vital Signs Temperature 36.5 C 09/10/24 11:54 Pulse 80 09/10/24 11:54 Respiratory Rate 16 09/10/24 11:54 Blood Pressure 135/86 09/10/24 11:54 Pulse Oximetry 95 09/10/24 11:54 Temperature 36.5 C 09/10/24 11:54 Temperature Source Oral 09/10/24 11:54 Pulse 80 09/10/24 11:54 Respiratory Rate 16 09/10/24 11:54 Blood Pressure 135/86 09/10/24 11:54 Blood Pressure Position Sitting 09/10/24 11:54 Pulse Oximetry 95 09/10/24 11:54 Oxygen Delivery Method Room Air 09/10/24 11:54 Oxygen Flow Rate 0 09/10/24 11:54 Procedure Laceration Laceration 1: Date of Procedure: 09/10/24 Time of procedure: 13:45 Provider that performed the procedure: Jerilyn Mcgowan Standard Time Out Performed: No Patient Consented: Verbally Site: hand Side (If applicable): left Description: stellate and irregular Depth: simple, single layer Local anesthetic: Lidocaine 1% Amount of anesthesia used (mL): 8 Pre-repair:: wound explored, irrigated extensively, deep structures intact and wound margins revised Skin layer closed with: nylon Suture size: 4-0 Number of sutures:: 23 Technique: simple, interrupted Procedure Description/Note: After anesthesia was achieved, the jagged stellate wound was repaired using simple interrupted stitches to reapproximate remaining skin into anatomical position. A large strip of macerated skin was removed from the wound edge, able to repair the wound with only moderate tension appreciated. Excellent alignment of available skin appreciated following this procedure. Medical Decision Making This is a 69-year-old male patient presenting for evaluation after a crush injury to the left hand. Differential includes but is not limited to laceration, abrasion, surgical consent or tendinous injury though the patient's physical examination is quite reassuring. No evidence for neurovascular derangement. Considered fracture and dislocation, foreign body. The patient's tetanus is up-to-date, we will obtain a an x-ray of the affected hand. The wound was thoroughly cleansed. -X-ray imaging shows no foreign bodies or fractures in the area of the laceration. There is a question of a small fracture at the distal fourth digit, on my reassessment the patient has no pain in that area and does have a pre-existing old injury. I suspect that this is likely not related to his acute injury today. After cleaning, local anesthesia was provided and the wound was repaired using sutures, excellent approximation was able to be achieved though there are some abraded areas at the proximal aspect that does not have skin available for coverage. The patient was counseled on reasonable healing expectations. Given the macerated nature and exposure of the other structures I feel that a short course of prophylactic antibiotics is reasonable. After assessing allergies doxycycline will be provided for the next 5 days. We discussed suture and wound care, and at this time, the patient has had a full medical evaluation and is safe for discharge to home. They are hemodynamically stable, ambulatory, and tolerating PO. They are understanding of the follow-up plan and return precautions. They left our facility without incident. Jerilyn Mcgowan MD [facility] All Active Problems (Updated 09/10/24 @ 13:42 by Jerilyn Mcgowan MD) Laceration of hand (Acute) Crush injury of hand (Acute) Bilateral shoulder pain (Acute) Actinic keratoses (Acute) Sun-damaged skin (Acute) Nail dystrophy (Acute) Onychomycosis (Acute) Diabetes type 2, controlled (Acute) Bilateral hip pain (Acute) BPH loc w urin obs/LUTS (Acute) Tubular adenoma of colon (Acute 01/12/01) 2003 Peripheral polyneuropathy (Acute 11/10/15) feet Hypertension (Acute) Hyperlipidemia (Acute) Family history of GI malignancy (Acute) mother-colon Contact dermatitis (Acute 04/04/17) Medical History ST elevation myocardial infarction (STEMI) (08/19/15) 4 stents. July 2015 [facility] [place], acute, non ST segment elevation (08/19/15) 1 stent LAD branch, 3 stents RCA. All bare metal stents. [facility] 08/09/15 Surgical History History of hernia repair ORAL [place] REPAIR Nasal septoplasty FRACTURED WRIST Family History (Updated 05/24/24 @ 11:24 by Melania Bonner) Mother , age 88 Essential hypertension Heart disease Colon cancer Father , age 69 Essential hypertension COPD (chronic obstructive pulmonary disease) CAD (coronary artery disease) Heart disease Sister , 69 Essential hypertension Heart disease Stroke Brother No problems noted. Daughter No problems noted. Daughter No problems noted. Son No problems noted. Son No problems noted. Maternal Grandmother , age 69 Arthritis Maternal Grandfather , age 69 Stroke Paternal Grandmother , age 93 No problems noted. Paternal Grandfather , age 68 Cancer Social History (Updated 05/24/24 @ 11:17 by Melania Bonner) Smoking/Tobacco Use Status: Former Tobacco Use tobacco type: cigarettes Tobacco: How many years used: 1 Second Hand Exposure: Yes Smoking risk assessment performed?: Yes Alcohol Intake: current Alcohol Intake frequency: holidays/special occasions only Alcohol type: beer Drug use: Never Substance use type: does not use Counseling given: No Adopted: No Caregiver/Support person: No Household members: spouse Housing: house Number of Children: 4 number of grandchildren: 12 Communication Needs: None Education Level: high school Do you need help understanding health information?: Never current occupation: Retired Pets and animals: No Sexually active: Yes Do you think of yourself as: straight/heterosexual Current gender identity: male What is your relationship status?: How often do you talk on the phone with friends or family?: three or more times per week How often do you get together with friends or relatives?: three or more times per week How often do you attend mormon or orthodox services?: 4 or more times per year Do you belong to any clubs or organized social groups?: yes Panel score (0-1 are the most socially isolated patients): 4 What type of physical activity do you participate in: other Details: PT Duration: 45-60 minutes/day Frequency: 1-2 times per week Patito/Taoism: Pentecostal Special patito needs: No Agree to transfusion: Yes Seatbelt use: sometimes Helmet use: Yes Helmet use: sometimes Drive intox or ride w/intox class a regional truck driver: No Working smoke detector in home: Yes Carbon monox detector in home: Yes Firearms in home: No Do you feel safe at home: Yes Do you feel safe in your relationship?: Yes Would you like helpful sources: No
[2024-09-10] MEDS: Lidocaine 1% Pres-Free 30 ML VIAL IJ (13:22)
== END 2024-09-10 13:39 | disposition home or self-care (01) ==
PROVIDERS: Emergency Provider Emergency Medicine; PCP Nurse Practitioner Family
DX: S67.22XA Crushing injury of left hand, initial encounter (principal); S61.412A Laceration without foreign body of left hand, initial encounter; W23.2XXA Caught, crushed, jammed or pinched between a moving and stationary object, initial encounter
CPT/HCPCS: 99283 ×2; 12004; 73130

== ENCOUNTER 2024-10-16 15:03 | Outpatient (CLI) | payer MEDICARE, SELFPAY ==
--- NOTE | 2024-10-16 13:00 | DI.RAD_ITS ---
Exam(s) XR SHOULDER LT COMPLETE 2+V EXAM: XR SHOULDER LT COMPLETE 2+V CLINICAL HISTORY: BILATERAL SHOULDER PAIN. TECHNIQUE: 2D digital imaging was performed of the left shoulder. Three images were obtained. Grashey and axillary views were obtained. COMPARISON: No exams were available for comparison FINDINGS: BONES: No acute fracture is present. No bony destructive lesion is seen. JOINTS: No dislocation present. The glenohumeral joint is well maintained. There are mild degenerative changes seen at the acromioclavicular joint. Mild spurring is seen at the lateral aspect of the acromion. SOFT TISSUE: Normal. IMPRESSION: Mild degenerative changes seen around the acromioclavicular joint. DATA REPOSITORY: RADIATION DOSE DELIVERED:
--- NOTE | 2024-10-16 13:15 | DI.RAD_ITS ---
Exam(s) XR SHOULDER RT COMPLETE 2+V EXAM: XR SHOULDER RT COMPLETE 2+V CLINICAL HISTORY: BILATERAL SHOULDER PAIN. TECHNIQUE: 2D digital imaging was performed of the right shoulder. Three images were obtained. Axillary and Grashey views were obtained. COMPARISON: No exams were available for comparison FINDINGS: BONES: No acute fracture is present. No bony destructive lesion is seen. JOINTS: No dislocation present. There are mild degenerative changes seen at the acromioclavicular and glenohumeral joints. There is mild spurring seen at the greater tuberosity. SOFT TISSUE: Normal. IMPRESSION: Mild degenerative changes seen around the right shoulder. DATA REPOSITORY: RADIATION DOSE DELIVERED:
== END 2024-10-16 15:04 | disposition home or self-care (01) ==
LOC: DIORS 15:04
PROVIDERS: PCP Nurse Practitioner Family; Visit Provider Student in an Organized Health Care Education/Training Program
DX: M19.011 Primary osteoarthritis, right shoulder (principal); M19.012 Primary osteoarthritis, left shoulder; E11.59 Type 2 diabetes mellitus with other circulatory complications; I10 Essential (primary) hypertension
CPT/HCPCS: 99213; 20610; 99214; J1010; 73030